=== PATIENT | female | born 1980 | race Caucasian/White ===

== ENCOUNTER 2023-08-20 14:50 | Outpatient (CLI) | payer OTHER, SELFPAY ==
--- NOTE | ~2023-08-20 | MM_ITS ---
EXAMINATION: MM screening caesar BI w andreia HISTORY: Screening TECHNIQUE: Craniocaudal and mediolateral oblique 3-D tomosynthesis images were obtained and synthetic 2-D images were generated. CAD analysis was submitted and interpreted. COMPARISON: No prior mammogram is available for comparison at this institution. BREAST PARENCHYMAL COMPOSITION: Breast composed of scattered areas of fibroglandular density FINDINGS: There are bilateral breast asymmetries in the upper outer quadrants. There are no suspiciou s calcifications. IMPRESSION: 1. Bilateral breast asymmetries. 2. Additional mammographic views and possible breast ultrasound are recommended. BI-RADS Category 0: Incomplete: Needs additional imaging evaluation. Reviewed, dictated and finalized at location A. CLEANER HELPER IMPRESSION: 1. Bilateral breast asymmetries. 2. Additional mammographic views and possible breast ultrasound are recommended . BI-RADS Category 0: Incomplete: Needs additional imaging evaluation.
== END 2023-08-20 14:51 | disposition home or self-care (01) ==
LOC: ANHIMG 14:53
PROVIDERS: PCP Internal Medicine; Visit Provider Nurse Practitioner
DX: Z12.31 Encounter for screening mammogram for malignant neoplasm of breast (principal); R92.8 Other abnormal and inconclusive findings on diagnostic imaging of breast
CPT/HCPCS: 77063; 77067

== ENCOUNTER 2023-10-06 10:33 | Outpatient (CLI) | payer OTHER, MEDICAID, SELFPAY ==
--- NOTE | ~2023-10-06 | MMUS_ITS ---
EXAMINATION: MM diagnostic caesar BI w andreia, US breast BI limited HISTORY: Follow-up breast asymmetries TECHNIQUE: Additional 3-D tomosynthesis images of the breasts were performed and synthetic 2-D images were generated. CAD analysis was submitted and interpreted. High resolution limited bilateral breast ultrasound was performed. COMPARISON: Comparison to multiple prior studies sequentially, with oldest reviewed study dated 10/2020. BREAST PARENCHYMAL COMPOSITION: Breast composed of scattered areas of fibroglandular density FINDINGS: MAMMOGRAPHIC FINDINGS: There are no suspicious masses, calcifications or architectural distortion in either breast to sugges t malignancy. Breast asymmetries are less apparent with spot compression views. ULTRASOUND: Limited bilateral breast ultrasound: Normal heterogeneous echotexture without focal solid or cystic m ass. IMPRESSION: 1. No evidence for malignancy in either breast. 2. Routine yearly screening mammogram and regular clinical breast examination are recommended. BI-RADS Category 1: Negative Reviewed, dictated and finalized at location A. AL RECRUITER IMPRESSION: 1. No evidence for malignancy in either breast. 2. Routine yearly screening mammogram and regular clinical breast examination a re recommended. BI-RADS Category 1: Negative
== END 2023-10-06 10:34 | disposition home or self-care (01) ==
PROVIDERS: PCP Internal Medicine; Visit Provider Nurse Practitioner
DX: R92.2 Inconclusive mammogram (principal)
CPT/HCPCS: 76642; 77062; 77066; G0279

== ENCOUNTER 2024-07-22 01:13 | Day surgery (SDC) | payer OTHER, SELFPAY ==
[2024-07-12 13:11] VITALS: BMI 31.3
[2024-07-22 06:14] VITALS: BP 128/82; PULSE 93; RESP 18; TEMP 36.6; O2SAT 100
[2024-07-22 06:17] LABS: BEDSIDEPREGUCG Negative (Negative)
[2024-07-22] MEDS: LACTATED RINGERS 1,000 ML 150 ML IV CONT (06:19)
--- NOTE | 2024-07-22 06:43 | WPDANESEPPF ---
Anes - Initial Pre Proc Eval Procedure: Operation Date: 07/22/24 07:30 Proposed Procedures p Screening Colonoscopy - Antonio Salcedo MD Date/Time: 07/22/24 06:43 Surgeon: Antonio Salcedo MD Pre Op Diagnosis: neoplasm screening Patient Data Age: 44 Gender: F Height: 1.68 m Weight: 85.5 kg Last Vital Signs Temp 36.6 C 07/22/24 06:14 Pulse 93 07/22/24 06:14 Resp 18 07/22/24 06:14 BP 128/82 07/22/24 06:14 Pulse Ox 100 07/22/24 06:14 O2 Del Method Room Air 07/22/24 06:14 Allergies Allergy/AdvReac Type Severity Reaction Status Date / Time sulfamethoxazole Allergy Unknown Blurry Verified 07/22/24 06:13 Vision trimethoprim Allergy Unknown Blurry Verified 07/22/24 06:13 Vision Home Medications Medication Instructions Recorded Confirmed Type acyclovir 800 mg tablet 800 mg PO DAILY 07/12/24 07/22/24 History atorvastatin 20 mg tablet 20 mg PO DAILY 07/12/24 07/22/24 History levothyroxine 100 mcg tablet 100 mcg PO DAILY 07/12/24 07/22/24 History multivitamin with folic acid 400 1 tablet PO DAILY 07/12/24 07/22/24 History mcg tablet (Daily-Moiz (with folic acid)) norethindrone (contraceptive) 0.35 0.35 mg PO DAILY 07/12/24 07/22/24 History mg tablet (Incassia) Laboratory Tests 07/22/24 06:13 POC Urine HCG, Qual Negative (Negative) Patient hx anesthesia problems: none Family hx anesthesia problems: none Results Review: All pre-operative results and documents have been reviewed as part of the pre-operative evaluation. [facility] Past Medical History Medical History (Updated 07/22/24 @ 06:44 by Alexx Hamilton MD) Hyperlipidemia Hypothyroidism Surgical History Surgical History (Updated 07/22/24 @ 06:46 by Alexx Hamilton MD) H/O colonoscopy History of foot surgery History of tubal ligation Social History Social History Smoking status: Never smoker Substance use type: does not use Living arrangements: with family Spiritual care concerns: No Anes - Eval Final PreProcedure Day of Procedure 07/22/24 06:43 Patient weight: obese Heart: regular rate and rhythm Lungs: clear to auscultation Airway: Mallampati scale class 1 Neurological: alert and oriented Last oral intake: >/= 8 hours ASA classification: II Emergent: no Anesthetic plan: proceed Anesthesia type and monitoring: general GIVS and standard monitoring Results Review: All pre-operative results and documents have been reviewed as part of the pre-operative evaluation. Informed Consent: The patient's anesthetic plan and its attendant risks and benefits were discussed with the patient/family/POA. Questions were solicited and answers provided to the satisfaction of the patient/family/POA.
--- NOTE | 2024-07-22 07:17 | WPDANESEPPF ---
Anes - Initial Pre Proc Eval Procedure: Operation Date: 07/22/24 07:30 Proposed Procedures p Screening Colonoscopy - Antonio Salcedo MD Date/Time: 07/22/24 07:17 Surgeon: Antonio Salcedo MD Pre Op Diagnosis: neoplasm screening Patient Data Age: 44 Gender: F Height: 1.68 m Weight: 85.5 kg Last Vital Signs Temp 36.6 C 07/22/24 06:14 Pulse 93 07/22/24 06:14 Resp 18 07/22/24 06:14 BP 128/82 07/22/24 06:14 Pulse Ox 100 07/22/24 06:14 O2 Del Method Room Air 07/22/24 06:14 Allergies Allergy/AdvReac Type Severity Reaction Status Date / Time sulfamethoxazole Allergy Unknown Blurry Verified 07/22/24 06:13 Vision trimethoprim Allergy Unknown Blurry Verified 07/22/24 06:13 Vision Home Medications Medication Instructions Recorded Confirmed Type acyclovir 800 mg tablet 800 mg PO DAILY 07/12/24 07/22/24 History atorvastatin 20 mg tablet 20 mg PO DAILY 07/12/24 07/22/24 History levothyroxine 100 mcg tablet 100 mcg PO DAILY 07/12/24 07/22/24 History multivitamin with folic acid 400 1 tablet PO DAILY 07/12/24 07/22/24 History mcg tablet (Daily-Moiz (with folic acid)) norethindrone (contraceptive) 0.35 0.35 mg PO DAILY 07/12/24 07/22/24 History mg tablet (Incassia) Laboratory Tests 07/22/24 06:13 POC Urine HCG, Qual Negative (Negative) Patient hx anesthesia problems: none Family hx anesthesia problems: none Results Review: All pre-operative results and documents have been reviewed as part of the pre-operative evaluation. [facility] Past Medical History Medical History (Updated 07/22/24 @ 06:44 by Alexx Hamilton MD) Hyperlipidemia Hypothyroidism Surgical History Surgical History (Updated 07/22/24 @ 06:46 by Alexx Hamilton MD) H/O colonoscopy History of foot surgery History of tubal ligation Social History Social History Smoking status: Never smoker Substance use type: does not use Living arrangements: with family Spiritual care concerns: No Anes - Eval Final PreProcedure Day of Procedure 07/22/24 07:17 Patient weight: normal Heart: regular rate and rhythm Lungs: clear to auscultation Airway: Mallampati scale class II Neurological: alert and oriented Last oral intake: >/= 8 hours ASA classification: II Emergent: no Anesthetic plan: proceed Anesthesia type and monitoring: general GIVS and standard monitoring Results Review: All pre-operative results and documents have been reviewed as part of the pre-operative evaluation. Informed Consent: The patient's anesthetic plan and its attendant risks and benefits were discussed with the patient/family/POA. Questions were solicited and answers provided to the satisfaction of the patient/family/POA.
--- NOTE | 2024-07-22 07:31 | PM.IMHP ---
H&P: HPI History of Present Illness Date/Time: 07/22/24 07:31 Chief Complaint: Family history of colorectal cancer Narrative: This patient has family history of colorectal cancer. her father was diagnosed with colorectal cancer at age 60. She had 1st colonoscopy at age 37. Review of Systems Review of Systems: All systems reviewed & are unremarkable except as noted in HPI and below PMFSH Past Medical History Medical History (Updated 07/22/24 @ 07:32 by Antonio Salcedo MD) Hyperlipidemia Hypothyroidism Surgical History Surgical History (Updated 07/22/24 @ 06:46 by Alexx Hamilton MD) H/O colonoscopy History of foot surgery History of tubal ligation Social History Social History Smoking status: Never smoker Substance use type: does not use Living arrangements: with family Spiritual care concerns: No Meds Home Medications and Allergies Home Medications Medication Instructions Recorded Confirmed Type acyclovir 800 mg tablet 800 mg PO DAILY 07/12/24 07/22/24 History atorvastatin 20 mg tablet 20 mg PO DAILY 07/12/24 07/22/24 History levothyroxine 100 mcg tablet 100 mcg PO DAILY 07/12/24 07/22/24 History multivitamin with folic acid 400 1 tablet PO DAILY 07/12/24 07/22/24 History mcg tablet (Daily-Moiz (with folic acid)) norethindrone (contraceptive) 0.35 0.35 mg PO DAILY 07/12/24 07/22/24 History mg tablet (Incassia) Allergies Allergy/AdvReac Type Severity Reaction Status Date / Time sulfamethoxazole Allergy Unknown Blurry Verified 07/22/24 06:13 Vision trimethoprim Allergy Unknown Blurry Verified 07/22/24 06:13 Vision Vital Signs Vital Signs - 24 hr 07/22/24 06:14 Temperature 97.9 F Pulse Rate 93 Respiratory Rate 18 Blood Pressure 128/82 Pulse Oximetry 100 Oxygen Delivery Room Air Exam Const: General: cooperative and healthy appearing Resp: Effort & Inspection: normal respiratory effort and able to speak in complete sentences Auscultation: clear to auscultation bilaterally Cardio: Rate: regular rate Rhythm: regular rhythm GI: Inspection: normal to inspection GI Palp: No No hepatosplenomegaly present Auscultation: normal bowel sounds Rectal Exam: deferred Skin: General skin exam: normal color Psych: Appearance: grossly normal Mental Status: mental status grossly normal Assessment and Plan Assessment and plan (1) Family history of colon cancer: Code(s): Z80.0 - Family history of malignant neoplasm of digestive organs Status: Acute Assessment and Plan: The patient is deemed a good candidate for the procedure. Consent signed. Will proceed.
[2024-07-22 07:49] VITALS: BP 97/60; PULSE 73; RESP 20; O2SAT 98
[2024-07-22 07:59] VITALS: BP 110/72; PULSE 64; RESP 18; O2SAT 98
[2024-07-22 08:09] VITALS: BP 127/73; PULSE 63; RESP 18; O2SAT 100
== END 2024-07-22 08:25 | disposition home or self-care (01) ==
PROVIDERS: Anesthesiology; PCP Internal Medicine; Referring Provider Internal Medicine; Visit Provider Internal Medicine Gastroenterology
PROC: 0DJD8ZZ Inspection of Lower Intestinal Tract, Via Natural or Artificial Opening Endoscopic (ICD-10-PCS; CPT 45378; principal; 2024-07-22 07:30)
DX: Z12.11 Encounter for screening for malignant neoplasm of colon (principal); Z80.0 Family history of malignant neoplasm of digestive organs; E78.5 Hyperlipidemia, unspecified; E03.9 Hypothyroidism, unspecified; E66.9 Obesity, unspecified; Z68.30 Body mass index [BMI] 30.0-30.9, adult
CPT/HCPCS: 45378; J2003; J2704; J7120

== ENCOUNTER 2025-01-19 14:57 | Outpatient (CLI) | payer OTHER, SELFPAY ==
--- NOTE | ~2025-01-19 | MM_ITS ---
EXAMINATION: MM screening caesar BI w andreia HISTORY: Screening TECHNIQUE: Craniocaudal and mediolateral oblique 3-D tomosynthesis images were obtained and synthetic 2-D images were generated. CAD analysis was submitted and interpreted. COMPARISON: Comparison to multiple prior studies sequentially, with oldest reviewed study dated 10/2020. BREAST PARENCHYMAL COMPOSITION: Not dense: There are scattered areas of fibroglandular density. FINDINGS: There is no evidence of suspicious mass, calcification, or architectural distortion to sugg est malignancy in either breast. There has been no suspicious interval change. IMPRESSION: 1. No mammographic evidence of malignancy. 2. Recommend routine screening mammography in one year. BI-RADS Category 1: Negative Reviewed, dictated and finalized at location A.
--- OUTSIDE RECORDS SUMMARY | 2025-01-19 15:03 | XMS_ITS | Data Portability ---
Author Organization [facility] [place] Address [address] [place] [address] Care Team Providers Care Glue Drier Operator Name Role Phone ZEKE AVENDANO Primary Care Provider Assessment Encounter Date Assessment Date Assessment LastModified by Organization Details LastModified Time 03/05/2022 03/05/2022 Discussed and reassured re normal amenorrhea on Slynd. may stop if she wants periods, may continue if she does not. she wants to continue discussed OTC colace and/or miralax for constipation WWE due 1-2 mos, will refill slynd then. [email or web address] Not available 03/06/2022 07:13:31 04/24/2022 04/24/2022 healthy female exam patient declines std testing pap due 2023 mammogram ordered and encouraged contraception-tu bal and slynd- refilled FU 1 year or prn [email or web address] Not available 04/29/2022 08:51:34 06/04/2023 06/04/2023 Annual gynecological exam performed. Patient will come back in a year unless there are new symptoms. [email or web address] Not available 06/04/2023 16:40:02 08/03/2024 08/03/2024 Annual gynecological exam performed. Patient will come back in a year unless there are new symptoms. [email or web address] Not available 08/03/2024 16:00:41 Plan of Treatment Reminders Order Date Submit Date Provider Last Modified By Organization Details Last Modified Time Details Appointments None recorded. Lab None recorded. Referral None recorded. Procedures None recorded. Surgeries None recorded. Imaging MAMMO, screening, digital, bilateral 2023 024 [email or web address] [facility], [address], [place], [address], 5 18:46:27 MAMMO, screening, digital, bilateral 2022 [facility]23 [facility] [address], [place], [address], 4 15:56:44 Medication Orders doxycycline hyclate 100 mg capsule 2023 024 [facility] [address], [address], 4 16:26:44 Incassia 0.35 mg tablet 2023 024 [facility] [address], [address], 4 16:28:04 Slynd 4 mg (28) tablet 2022 023 [email or web address] [facility] [address], [address], 4 16:02:16 Slynd 4 mg (28) tablet 2021 022 [place] [address] [facility] [address], [address], 4 16:02:16 Patient TargetsNo targets recorded. Patient InstructionsNo instructions recorded. Reason for Referral None Reported. Results Created Date Observation Date Name Description Value Unit Range Abnormal Flag Note LastModifiedBy Organization Detail LastModifiedTime 06/04/20 23 06/04/2023 IMAGE GUIDE D PAP AND HPV REGAR DLESS image guided Pap, HPV regardless of Pap result SEE RESULT S BELOW CASE REPOR T: Cytol ogy Gynec ologi tiesha Repor t Case: [id number] Autho rachael g Provi maninder: LamSierra faust NP Colle cted: 06/04 1653 Order ing Locat ion: [place] [facility] Recei joslyn: 06/05 0724 First Scree n: Shobha ramirez, Endy ed, CT Rescr een: Lindsey lunsfodr, Cullen faust, CT Speci men: Scree shahana Pap - Image d, Cervi x STATE MENT OF ADEQU ACY: Satis facto ry for evalu ation Trans forma tion zone compo nent prese nt FINAL DIAGN OSIS: Negat john for Intra epith elial Lesio n or Paresh brewer (NIL) . Shift in [place] sugge stive of bacte rial vagin osis. Elect martínez mchugh d by Lindsey lunsford, Cullen faust, CT on 2022 at 5:25 PM ----- ----- ----- ----- ----- ----- ----- ----- ----- ----- ----- ----- ----- ----- ----- ----- ----- ---- HPV RESUL TS: HPV mRNA E6/E7 : No HPV mRNA Detec leeanne NOTE: This high risk HPV mRNA assay detec ts fourt een high- risk HPV types (16, 18, 31, 33, 35, 39, 45, 51, 52, 56, 58, 59, 66, 68) witho ut diffe renti ation . COMME NT: This speci men was revie wed by a Cytot echno logis t and/o r Patho logis t (as indic ated in this repor t) after evalu ation using the Thinp rep Imagi ng Syste m. CLINI TIESHA INFOR MATIO N: Menst rual Statu s: LMP (if appli cable ): Clini tiesha Histo ry/Pr eviou s Pap: Type of Neopl ross (if appli cable ): Signi fican t Clini tiesha Findi ngs: Other Histo ry: Hormo koko (if appli cable ): PAP EDUCA AMILCAR L NOTE: The Pap Test is a scree shahana test with an inher ent false negat john rate. Liqui d-bas ed sampl ing may decre ase, but will not elimi lincoln, false negat john resul ts. A negat john resul t does not precl ude the prese nce and/o r devel opmen t of disea se, since the prese nce of abnor mal cells in the sampl e depen ds on the locat ion of the lesio n and sampl ing techn ique. Vinay nued regul ar scree shahana is the best metho d of cance r preve ntion . If repor leeanne cytol ogic findi ng do not corre late with physi tiesha and/o r histo rical findi ngs, furth er inves tigat ion is recom adilene d, as clini soledad franco nted. Not Available [facility] (Lab) [address], [place], [address], 06/09/2023 18:29:53 08/03/20 24 08/03/2024 CULTU RE: AEROB IC/AN AEROB IC result report SEE RESULT S BELOW abnormal Test: Cultu re: Aerob ic/An aerob ic Speci men Sourc e: Other Speci men Type: Micro biolo gy Speci men Speci men Date: 08/03 1659 Resul t Date: 08/06 1118 Resul t Statu s: Final resul t Abnor mal: Yes Resul ting Lab: [facility] [address] [facility] [address] Tel: [phone] CULTU RE ----- ----- ----- --- Moder ate Growt h Staph yloco ccus aureu s (Abno rmal) Light Growt h Kimberlee l skin [place] Cultu re sampl es colle cted from sites that are proxi mal to kimberlee l anaer obic [place] , do not provi de usefu l infor matio n. The anaer obic porti on of this cultu re has been credi leeanne. STAIN ----- ----- ----- --- Few Gram posit john cocci seen SUSCE PTIBI LITY ----- ----- ----- --- Staph yloco ccus aureu s METHO D HILARIO ----- ----- ----- ----- ----- ---- ----- ----- ----- ----- ----- CLIND AMYCI N <=0.2 5 ug/mL Susce ptibl e ERYTH ROMYC IN <=0.2 5 ug/mL Susce ptibl e GENTA MICIN <=4 ug/mL Susce ptibl e OXACI LLIN <=0.2 5 ug/mL Susce ptibl e TETRA CYCLI NE <=4 ug/mL Susce ptibl e TRIME THOPR IM/ESPINOZA LFAME THOXA ZOLE <=0.5 ug/mL Susce ptibl e VANCO MYCIN 1 ug/mL Susce ptibl e Not Available [facility] (Lab) [address], [place], [address], 08/14/2024 12:11:59 08/03/20 24 08/03/2024 IMAGE GUIDE D PAP AND HPV REGAR DLESS image guided Pap, HPV regardless of Pap result SEE RESULT S BELOW CASE REPOR T: Cytol ogy Gynec ologi tiesha Repor t Case: [id number] Autho rachael g Provi maninder: Sierra Mccall, OMAYRA Colle cted: 08/03 1659 Order ing Locat [place]: [place] [facility] [place] Recei joslyn: 08/04 1248 First Scree n: Wil richey, Nayeli , CT Speci men: Scree shahana Pap - Image d, Cervi x STATE MENT OF ADEQU ACY: Satis facto ry for evalu ation Trans forma tion zone compo nent prese nt ----- ----- ----- ----- ----- ----- ----- ----- ----- ----- ----- ----- ----- ----- ----- ----- ----- ---- FINAL DIAGN OSIS: Negat john for Intra epith elial Lesdyan n or Paresh brewer (NIL) . Shift in [place] sugge stive of bacte rial vagin osis. Elect martínez mchugh d by Nayeli Brooks , LAURA on 2023 at 11:07 AM ----- ----- ----- ----- ----- ----- ----- ----- ----- ----- ----- ----- ----- ----- ----- ----- ----- ---- HPV RESUL TS: HPV mRNA E6/E7 : No HPV mRNA Detec leeanne NOTE: This high risk HPV mRNA assay detec ts fourt een high- risk HPV types (16, 18, 31, 33, 35, 39, 45, 51, 52, 56, 58, 59, 66, 68) witho ut diffe renti ation . COMME NT: This speci men was revie wed by a Cytot echno logis t and/o r Patho logis t (as indic ated in this repor t) after evalu ation using the Thinp rep Imagi ng Syste m. CLINI TIESHA INFOR MATIO N: Menst rual Statu s: LMP (if appli cable ): Clini tiesha Histo ry/Pr eviou s Pap: Type of Neopl ross (if appli cable ): Signi fican t Clini tiesha Findi ngs: Other Histo ry: Hormo koko (if appli cable ): PAP EDUCA AMILCAR L NOTE: The Pap Test is a scree shahana test with an inher ent false negat john rate. Liqui d-bas ed sampl ing may decre ase, but will not elimi lincoln, false negat john resul ts. A negat john resul t does not precl ude the prese nce and/o r devel opmen t of disea se, since the prese nce of abnor mal cells in the sampl e depen ds on the locat ion of the lesio n and sampl ing techn ique. Vinay nued regul ar jim harkins is the best metho d of cance r preve ntion . If repor leeanne cytol ogic findi ng do not corre late with physi tiesha and/o r histo rical findi ngs, furth er inves tigat ion is recom adilene d, as clini soledad franco nted. Not Available [facility] (Lab) [address], [place], [address], 08/14/2024 12:11:59 09/10/19 24 08/20/2023 MAMMO , jim alvesg, digit al, bilat eral No observ ation record ed. [address], [place], [address], 09/10/2023 17:34:59 Result Notes None recorded. Problems Name Problem SNOMED Code Status Onset Date Resolution Date Notes Provider Name and Address Organization Details Recorded Time Hypothyroidis m 89102414 Active 2021 Clari You MD [address], [place], [address], [facility] 2 14:14:57 Hypercholeste rolemia 33270690 Active 2021 Clari You MD [address], [place], [address], [facility] 2 14:15:03 Problem Notes None recorded. Procedures Surgical History Date Name Laterality Status Provider Name and Address Organization Details Recorded Time 08/20/20 Date of Last Mammogram completed Sherry Yanez [facility] 08/03/2024 16:02:58 06/04/20 23 Date of Last Pap Smear completed Sherry Yanez [facility] 08/03/2024 16:02:33 04/27/20 18 completed Misti Manrique [facility] 06/04/2023 16:40:33 04/27/20 18 Date of Last [facility] 06/04/2023 16:40:33 09/08/19 15 Tubal Ligation completed [facility] 03/05/2022 14:10:53 04/01/20 05 delivery completed [facility] 03/05/2022 09:38:22 [facility]2023 16:40:42 Colonoscopy completed [facility] 06/04/2023 16:40:42 Imaging Results Imaging Date Name Status LastModified by Organiz ation Details LastModified Time 08/20/2023 MAMMO, screening, digital, bilateral completed [address] [facility] [address], [place], [address], 09/10/2023 17:34:59 Procedure Notes None recorded. Medical Equipment None Reported. Allergies Allergen ID Allergen Name Allergen Category Reaction Reaction Severity Criticality Documentation Date Start Date Code Code System Note Provider Name and Address Organization Details Recorded Time 34421 Bactrim medicatio n Not available Not available Not available 03/05/2022 34579 9 [facility] 14:04:55 Medications Name Sig Start Date Stop Date Status Note LastModified by Organization Details LastModified Time doxycycline hyclate 100 mg capsule TAKE 1 CAPSULE BY MOUTH TWICE A DAY FOR 7 DAYS active Not Available Not Available No t Available atorvastati n 20 mg tablet TAKE 1 TABLET BY MOUTH EVERY DAY active Not Available Not Available No t Available tizanidine 4 mg tablet TAKE 1 TABLET BY MOUTH THREE TIMES A DAY NEEDED 03/05 completed Not Available Not Available Not Available senna 8.6 mg tablet TAKE 2 TABLETS BY MOUTH EVERY DAY AT BEDTIME NEEDED FOR CONSTIPAT ION 05/26 completed Not Available Not Available Not Available metronidazo le 0.75 % (37.5 mg/5 gram) vaginal gel INSERT 1 APPLICATO RFUL EVERY DAY BY VAGINAL ROUTE AT BEDTIME FOR 5 DAYS. 03/05 completed Not Available Not Available Not Available penicillin V potassium 500 mg tablet TAKE 1 TABLET EVERY 8 HOURS BY MOUTH FOR 7 DAYS. 03/05 completed Not Available Not Available Not Available tramadol 50 mg tablet TAKE 1 TABLET BY MOUTH EVERY DAY NEEDED FOR 10 DAYS 03/05 completed Not Available Not Available Not Available acyclovir 800 mg tablet TAKE 1 TABLET BY MOUTH EVERY DAY active Not Available Not Available No t Available levothyroxi ne 100 mcg tablet TAKE 1 TABLET BY MOUTH EVERY DAY active Not Available Not Available No t Available terbinafine HCl 250 mg tablet TAKE 1 TABLET BY MOUTH EVERY DAY 03/05 completed Not Available Not Available Not Available polyethylen e glycol 3350 17 gram/dose oral powder MIX 1 CAPFUL IN 8OZ OF FLUID AND TAKE BY MOUTH ONCE DAILY 05/26 completed Not Available Not Available Not Available Tab-A-Moiz 06/04 completed Not Available Not Available Not Available calcium 600 mg (as carbonate)- vitamin D3 10 mcg (400 unit) tablet TAKE 1 TABLET BY MOUTH TWICE A DAY active Not Available Not Available No t Available calcium 600 mg-D3 800 unit-mag11 50 mg-zinc-copper plate lithographer per-janae-s. borat tablet 06/04 completed Not Available Not Available Not Available Incassia 0.35 mg tablet TAKE 1 TABLET BY MOUTH EVERY DAY active Not Available Not Available No t Available Slynd 4 mg (28) tablet TAKE 1 TABLET BY MOUTH EVERY DAY 08/03 completed Not Available Not Available Not Available Daily-Moiz (with folic acid) 400 mcg tablet TAKE 1 TABLET BY MOUTH EVERY DAY active Not Available Not Available No t Available Vitals Date Recorded Body height Body mass index (BMI) Body weight Systolic blood pressure Diastolic blood pressure Provider Name and Address Organization Details Last Updated DateTime 03/05/2022 167.64 cm 27.3 kg/m2 39010.11 g 128 mm[Hg] 84 mm[Hg] [facility] 14:10:46 Date Recorded Body height Body mass index (BMI) Body weight Systolic blood pressure Diastolic blood pressure Provider Name and Address Organization Details Last Updated DateTime 04/24/2022 167.64 cm 27.8 kg/m2 80736.89 g 125 mm[Hg] 82 mm[Hg] Meghana Denson [facility] 2 10:48:12 Date Recorded Body height Body mass index (BMI) Body weight Systolic blood pressure Diastolic blood pressure Provider Name and Address Organization Details Last Updated DateTime 06/04/2023 167.64 cm 29.7 kg/m2 29269 g 121 mm[Hg] 79 mm[Hg] Misti Manrique [facility] 3 16:40:20 Date Recorded Body height Body mass index (BMI) Body weight Systolic blood pressure Diastolic blood pressure Systolic blood pressure Diastolic blood pressure Provider Name and Address Organization Details Last Updated DateTime 4 167.64 cm 30.8 kg/m2 65896.1 4 g 142 mm[Hg] 85 mm[Hg] 132 mm[Hg] 90 mm[Hg] Sherry Yanez [facility] 4 16:36:18 Social History Question Answer Notes LastModified by Organizat ion Details LastModified Time Tobacco Smoking Status Never Smoker Misti Manrique [facility] 06/04/2023 16:40:37 Do You Have An Advance Directive? No Information n ot available 06/04/2023 Are You Blind Or Do You Have Difficulty Seeing? No Information n ot available 06/04/2023 What Is Your Level Of Caffeine Consumption? Occasional Information not available 06/04/2023 How Much Tobacco Do You Chew? None Information not available 06/04/2023 In The 14 Days Before Symptom Onset, Have You Had Close Contact With A Laboratory-confirm ed COVID-19 While That Case Was Ill? No Information n ot available 06/04/2023 In The 14 Days Before Symptom Onset, Have You Had Close Contact With A Person Who Is Under Investigation For COVID-19 While That Person Was Ill? No Information not available 06/04/2023 Have You Been To An Area Known To Be High Risk For COVID-19? No Information not available 06/04/2023 Are You Deaf Or Do You Have Serious Difficulty Hearing? No Information not available 06/04/2023 What Type Of Diet Are You Following? REGULAR Information n ot available 06/04/2023 What Is The Highest Grade Or Level Of School You Have Completed Or The Highest Degree You Have Received? [id number] Information not available 06/04/2023 Are There Any Guns Present In Your Home? No Information not available 06/04/2023 Do You Use Your Seat Belt Or Car Seat Routinely? Yes Information not available 06/04/2023 Do You Have Smoke And Carbon Monoxide Detectors In Your Home? Yes Information not available 06/04/2023 How Much Tobacco Do You Smoke? No Information not available 06/04/2023 Do You Use Sunscreen Routinely? Yes Information not available 06/04/2023 Has Tobacco Cessation Counseling Been Provided? No Information not available 06/04/2023 Have You Used IV Drugs? No Information not available 06/04/2023 Sex: Unknown Functional Status Question Answer Note LastModified by Organizat ion Details LastModified Time Do you use any illicit or recreational drugs? No Information not available 03/05/2022 Do you or have you ever used any other forms of tobacco or nicotine? No Information not available 06/04/2023 What is your level of alcohol consumption? None Information not available 03/05/2022 Are you able to walk? 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 [id number] Information not available 06/04/2023 Family History Relationship Description Onset Age of this Age Resolved Age Notes LastModified by Organization Details LastModified Time Mother Chronic obstructive pulmonary disease [email or web address] Not available 2023 15:57:15 Mother Alcoholism [email or web address] Not availa ble 08/03/2024 15:57:15 Mother Heart disease [email or web address] Not available 2021 14:05:48 Mother Hypercholest erolemia [email or web address] Not available 05/10 16:40:25 Mother Hypertensive disorder [email or web address] Not available 05/10 16:40:25 Mother Depressive disorder [email or web address] Not available 05/10 16:40:25 Father Carcinoma in situ of colon [email or web address] Not available 2023 15:57:15 Father Carcinoma of prostate [email or web address] Not available 2023 15:57:15 Father Malignant tumor of colon [email or web address] Not available 05/10 16:40:25 Son Asthma [email or web address] Not availabl e 06/04/2023 16:40:25 Medical History Condition Response Allergies (Food, seasonal, environmental ) N Other N Breast Cancer N Drug/Latex Allergies/Reactions N Blood Transfusion N Dermatologic Disorders N Lung Disease N Defects or Inherited Disease N Breast Problem N Gestational Diabetes N Hematologic disorders N Anesthesia Complications N History of STI N Deep Vein Thrombosis N Polycystic ovary syndrome N Anxiety Disorder N Autoimmune disease N Arthritis N Infertility N Polyps N Acid Reflux (GERD) N History of abnormal pap N Cancer N Stroke N Varicosities N Neurologic/Epilepsy N Endometriosis N High Cholesterol Y Headaches N Fibromyalgia N Kidney Disease N Heart Problems N Kidney or Bladder Problems N Thyroid Problems Y GI Problems N Eating Disorder N Anemia N Art (IVF or FET) N Psychiatric Illness N Ovarian Cancer N Diabetes N Pulmonary (TB, Asthma) N Hepatitis/Liver Disease N No Past Medical History N Eczema N Urinary Tract Infection N Abuse/Domestic Violence N Asthma N Trauma/Violence N Depression/ depression N Heart Disease N Pre-Eclampsia N Hypertension N Osteoporosis N Thrombophilias N Gynecological History Statement/Question Response Date of Last Mammogram 08/20/2023 Flow Moderate Date of LMP 07/13/2024 N Was last menstrual period normal Y STIs/STDs Y Date of control 03/17/2021 Date of Last Colonoscopy 04/27/2018 BCPs Desired Control Method BCPs Abnormal Pap Y On BCP's at Conception? N HPV Vaccine Y Duration of Flow (days) 6 Current Control Method Tubal Ligat ion Age at First Child 19 Are cycles usually normal Y Frequency of Cycle (Q days) 28 Sexually Active? N Menses Monthly Y Age of first menstrual cycle 16 Date of Last Pap Smear 06/04/2023 Sexual Problems? N LMP Approximate 04/27/2018 Obstetrics History GPAL:G 3 P 2 0 1 2 Type Value Full Term 2 Induced 1 Living 2 Total 3 Past Encounters Encounter ID Performer Location Encounter Start Date Encounter Closed Date Diagnosis/Indication Diagnosis SNOMED-CT Code Diagnosis ICD10 Code Diagnosis Note [id number] Clari You MD [facility] [address],[facility] [place] [address] 03/05/2022 13:31:02 03/06/2022 15:32:20 Secondary amenorrhea 590311690 N91.1 Constipation 49052495 K5 9.00 [id number] Clari You MD [place] [address],[place] [address] 04/24/2022 10:42:06 04/25/2022 12:18:10 Menorrhagia 647433379 N92.0 Gynecologi c examination 46504157 Z01.419 [id number] MONICA Fabian [facility] [address],[facility] [place] [address] 06/04/2023 16:35:27 06/04/2023 17:16:54 Gynecologic examination 78182276 Z01.419 Suggested adequate Calcium with Vitamin D daily. Patient advised to get an annual flu shot in the fall and she could obtain at [facility] or [facility] clinic. Also to obtain TDap vaccinatio n if you have not had one in the last 10 years. Recommend yearly mammograms . Encouraged monthly self breast exams. Encourage safe sexual practices, to use condoms and limit partners if not already in a monogamous relationsh ip. Engage in daily exercise of low impact aerobic exercise 45-60 minutes 4-5 times weekly. Avoid tobacco and illicit drugs as well as using moderation with alcohol intake less than 1-2 8 oz beverages daily. This lifestyle behavior pattern will lead to less health conditions and longer life span. If BMI greater than 25 dietary consult advised. All questions have been answered. Patient appears to understand informatio n, but if you have any questions please call or respond to this email. [facility] [place] to help with periodshap py with slynd and would like to continuer/ b/a reviewedre fills sentpap updatedSTI testing declinedma mmogram order given and encouraged to schedulefa m hx of colon CA - colonoscop y UTD (PCP orders)UTD with PCP for routine labsRTC in 1 year or sooner if needed Screening for malignant neoplasm of breast 604444200 Z12.39 Contracept ion care management 738511363 Z30.9 Menorrhagia 131430956 N9 2.0 [id number] MONICA Fabian [place] [address] [address] 08/03/2024 15:56:57 08/04/2024 11:09:37 Gynecologic examination 99165842 Z01.419 Z11.51 [facility] [place], refills sent, r/b/a reviewedPa p - updatedSTI screen - declinedMa mmogram - orderedCol on cancer screening - n/aRoutine labs - PCPRTC in 1 yr or sooner if needed Suggested Calcium with Vitamin D daily. Patient advised to get an annual flu shot in the fall and she could obtain at local pharmacy. Also to obtain TDap vaccinatio n if you have not had one in the last 10 years. Recommend yearly mammograms . Encouraged monthly self breast exams. Encourage safe sexual practices, to use condoms and limit partners if not already in a monogamous relationsh ip. Engage in regular exercise. Avoid tobacco and illicit drugs. This lifestyle behavior pattern will lead to less health conditions and longer life span. If BMI greater than 25 dietary consult advised. All questions have been answered. Abscess of vulva 5450529 1 N76.4 cx obtainedrx sent for doxycyclin eprecautio ns discussed Screening for malignant neoplasm of breast 229395648 Z12.39 Menorrhagia 039580022 N9 2.0 refills sent Health Concerns Section Related Observation LastModified by Organization Detai ls LastModified Time None Recorded Concern Status LastModified by Organization Details LastModified Time None Recorded Advance Directives Directive N: Payers Encounter Date Sequence Insurance Name Policy Number Policy Benitez Covered Member ID Benitez Member ID Guarantor Name 03/05/2022 1 [facility] (MEDICAID HMO) [id number] 03 Asuncion Ashley [id number] Asuncion Ashley 04/24/2022 1 [facility] (MEDICAID HMO) [id number] 03 Asuncion Ashley [id number] Asuncion Ashley 06/04/2023 1 [facility] (MEDICAID HMO) [id number] 03 Asuncion Ashley [id number] Asuncion Ashley 08/03/2024 1 [id number] Asuncion Ashley [id number] Asuncion Ashley Notes Date Note Type Note Provider Name and Address Organization Details Recorded Time 03/05/2022 text/html Patient is a 42y o who presents for not having periods. She is sexually active and has a tubal. She had an IUD for bleeding, but then had it removed and has been on Slynd now for over a year. She is not having any cycles while on it and is worried. Concerns: last WWE:03/2021 Eufemia Depression:denies Domestic violence:denies She also complains of constipation, BMs only once or twice per week. Clari You MD [address], [place], [address], [facility] 03/06/2022 07:14:00 04/24/2022 text/html Patient is a 42y o who presents for an annual exam. Tubes tied but on slynd for menorrhagia. doing well. last pap-02/2021 mammogram-2020 sexually active-y seatbelts-y exercise-y depression-denies domestic violence-denies tobacco-n concerns- Clari You MD [address], [place], [address], [facility] 04/29/2022 08:51:57 06/04/2023 text/html Annual GYNReport ed bypatient.Menstrua l cycle:Normal menses Urinary symptoms:No hematuria; No incontinence Vulva:No genital lesion Vagina:Normal vaginal discharge Breast:No breast pain; No breast lump; No nipple discharge Current Contraception:Sati sfied with current contraception; Oral contraceptives; Tubal ligation; on POP to with periods Sexual complaints:No sexual complaints; No pain during intercourse; Normal libido Menopausal Symptoms:No menopausal symptoms; Normal vaginal lubrication Psychological symptoms:No depression; No anxiety; No PMDD Preventive measures:Encourage self breast examination; Encourage regular exercise; Encourage no tobacco use; Encourage regular mammograms starting age 40; Needs to schedule mammogram MONICA Fabian [address], [place], [address], [facility] 06/04/2023 17:12:59 08/03/2024 text/html Annual GYNReport ed bypatient.Menstrua l cycle:Normal menses Urinary symptoms:No hematuria; No incontinence Vulva:No genital lesion; furuncle on mons, recently drained on its own - tender Vagina:Normal vaginal discharge Breast:No breast pain; No breast lump; No nipple discharge Current Contraception:Sati sfied with current contraception; Tubal ligation Sexual complaints:No sexual complaints; No pain during intercourse; Normal libido Menopausal Symptoms:No menopausal symptoms; Normal vaginal lubrication Psychological symptoms:No depression; No anxiety; No PMDD Preventive measures:Encourage self breast examination; Encourage regular exercise; Encourage no tobacco use; Encourage regular mammograms starting age 41Notes:44yo wweBC - POPlast pap 05/2023 : nilm, HPV (-)h/o abnormal pap in 2014 MONICA Fabian [address], [place], [address], [facility] 08/04/2024 09:17:21 OBGyn Episode Ob Episode Information Episode Created Date Number of Fetuses Patient Bloodtype Patient rh Status Prepregnancy Weight lbs Domestic Partner Domestic Partner Phone Father Name Transmission Repairer Status 03/05/20 22 1 CLOSED Fetus Data First Name Last Name Admitted to NICU Weight (g) Sex Living Outcome Pediatric Complications Fetus ID Race Codes Race Delivery Type , Induced [id number] Marlon Calculation Initial Marlon Date Initial Exam Date Initial Exam Provider Initial Ultrasound Date Last Menstrual Period Date Ultra Sound Weeks Gestation 0 Eighteen To Twenty Week Marlon Update Ultra Sound Date Fundal Height At Umbil Quickening Date Ultra Sound Latest Weeks Gestation Final Marlon Confirmed By Final Marlon Confirmed Date Final Marlon Date Ultra Sound Latest Days Gestation 0 0 Menstrual History [id number]|2025-01-19 15:03:00|2025-01-19 15:03:00|XMS_ITS|KEYANNA CASTELLON|External Medical Summaries|[id number]|" Data Portability Created on: January 19, 2025 Asuncion Ashley .[id number] : 1980 Sex: Female Author Organization [facility] ANNYDamien Address [address] [place] [address] Assessment No assessment recorded. Plan of Treatment Reminders Order Date Submit Date Provider Last Modified By Organization Details Last Modified Time Details Appointments None recorded. Lab pap, IG + HPV, cervical - please use Z11.51 in addition to code above for HPV testing. 2020 021 WENDY [facility], [address], [address] [address], [place], [address], 03:08:19 bacterial vaginosis panel, vaginal 2020 021 WENDY [facility] (Centralized Electronic Ordering - All Locations), Patient Can Go To The Location Of Their Choice, [address] 09:13:01 culture, vaginal/r ectal, streptoco ccus group B 2020 021 WENDY [facility] (Centralized Electronic Ordering - All Locations), Patient Can Go To The Location Of Their Choice, [address] 09:13:02 urinalysi s, dipstick 2019 020 [email or web address] In-Office Order, Internal Use Only DO Not Attach Compendium DO Not Attach Compendium, Do Not Delete/merge, [id number] 0 17:21:15 pap, IG + HPV, cervical - please use Z11.51 in addition to code above for HPV testing. 2019 020 WENDY [facility], [address], [address] [address], [place], [address], 0 20:08:02 bacterial vaginosis panel, vaginal 2019 020 WENDY [facility] (Centralized Electronic Ordering - All Locations), Patient Can Go To The Location Of Their Choice, [id number] 0 06:13:46 culture, vaginal/r ectal, streptoco ccus group B 2019 020 WENDY [facility] (Centralized Electronic Ordering - All Locations), Patient Can Go To The Location Of Their Choice, [address] 0 06:13:46 lipid panel, serum 2019 020 [email or web address] [facility], [address] [place] [address], [address], [place], [address], 0 10:11:21 TSH + free T4, serum 2019 020 WENDY [facility], [address] [place] [address], [address], [place], [address], 0 09:11:31 rapid strep group A, throat 2018 019 [email or web address] In-Office Order, Internal Use Only DO Not Attach Compendium DO Not Attach Compendium, Do Not Delete/merge, [id number] 9 09:56:41 lipid panel, serum 2018 019 [email or web address] [facility], [address] [place] [address], [address], [place], [address], 9 10:01:38 CBC w/ auto diff 2018 019 [email or web address] [facility], [address] [place] [address], [address], [place], [address], 9 10:01:38 TSH, ultra-sen sitive, serum 2018 019 koko [facility], [address] [facility], [address], [place], [address], 0 16:40:53 Referral podiatris t referral 2019 020 koko Not available 0 16:34:29 Procedures None recorded. Surgeries None recorded. Imaging US, pelvis, complete [address] [facility] ([facility]), [address] [place], [address], 1 14:04:39 MAMMO, screening , bilateral [address] [facility] ([facility]), [address] [place], [address], 1 16:32:46 Medication Orders multivita min tablet 2020 021 [facility] [address], [address], 1 17:15:48 Calcium with Vitamin D 600 mg-10 mcg (400 unit) tablet 2020 021 [facility] [address], [address], 1 17:15:48 Slynd 4 mg (28) tablet 2020 021 [facility] [address], [address], 1 17:15:27 acyclovir 800 mg tablet 2019 020 [facility] [place], [address] [place] [address], [address], 0 16:19:11 Denavir 1 % topical cream 2019 020 [email or web address] [address], [address], 1 16:34:08 terbinafi ne HCl 250 mg tablet 2019 020 [facility] [address], [address], 0 16:34:20 Slynd 4 mg (28) tablet 2019 020 [facility] [address], [address], 0 16:19:12 multivita min tablet 2019 020 [facility] [address], [address], 0 16:19:12 Calcium with Vitamin D 600 mg-10 mcg (400 unit) tablet 2019 020 [facility] [address], [address], 0 16:19:11 atorvasta tin 20 mg tablet 2019 020 [facility] [address], [address], 0 15:57:47 multivita min tablet 2019 020 [facility] [address], [address], 0 15:56:41 Calcium with Vitamin D 600 mg-10 mcg (400 unit) tablet 2019 020 [facility] [address], [address], 0 15:56:42 acyclovir 800 mg tablet 2019 020 [facility] [address], [address], 0 15:56:39 norethind daniel acetate 5 mg tablet 2019 020 [facility] [address], [address], 0 16:15:10 levothyro xine 100 mcg tablet 2019 [facility] [address], [address], 0 15:56:39 Patient TargetsNo targets recorded. Patient Instructions Encounter Date Encounter Id Patient Instructions Last Modified By Organization Details Last Modified Time 11/13/2018 [id number] sore throat: care instructions oajao Not available 11/13/2018 09:56:41 Low CHO, low saturated fat diet Labs Follow up in 2 months oajao Not available 11/13/2018 10:07:52 Her lab results were discussed in detail oajao Not available 11/13/2018 10:08:06 02/21/2020 [id number] heavy menstrual periods: care instructions mwasserman Not available 02/21/2020 15:56:36 hypothyroidism: care instructions mwasserman Not available 02/21/2020 15:56:36 03/05/2021 [id number] mammogram: about this test mwasserman Not available 03/05/2021 17:15:48 mammogram screening patient instructions mwasserman Not available 03/05/2021 17:15:48 Reason for Referral Hand Picker Referral for Onyc homycosis of toenails Referring Physician: Marco Fall, SHUTDOWN COORDINATOR, Encounter Date: 03/30/2020 Results Created Date Observation Date Name Description Value Unit Range Abnormal Flag Note LastModifiedBy Organization Detail LastModifiedTime 10/16/19 19 10/17/2018 CBC w/ auto diff WBC 10.3 x10e3 /uL 3.4-10 .8 Not Available [facility] ([facility]) [address] [place] [place], [address], 10/18/2018 08:09:30 10/16/1910/17/2018 CBC w/ auto diff RBC 4.75 x10e6 /uL 3.77-5 .28 Not Available [facility] ([facility]) [address] [place], [address], 10/18/2018 08:09:30 10/16/1910/17/2018 CBC w/ auto diff hemoglobin 16.5 g/dL 11.1-1 5.9 above high normal Not Available [facility] ([facility]) [address] [place], [address], 10/18/2018 08:09:30 10/16/19 19 10/17/2018 CBC w/ auto diff hematocrit 48.2 % 34.0-4 6.6 above high normal Not Available [facility] ([facility]) [address] [place], [address], 10/18/2018 08:09:30 10/16/19 19 10/17/2018 CBC w/ auto diff MCV 102 fL 79-97 above high normal Not Available [facility] ([facility]) [address] [place], [address], 10/18/2018 08:09:30 10/16/1910/17/2018 CBC w/ auto diff MCH 34.7 pg 26.6-3 3.0 above high normal Not Available [facility] ([facility]) [address] [place], [address], 10/18/2018 08:09:30 10/16/1910/17/2018 CBC w/ auto diff MCHC 34.2 g/dL 31.5-3 5.7 Not Available [facility] ([facility]) [address] [facility], [place], [address], 10/18/2018 08:09:30 10/16/19 19 10/17/2018 CBC w/ auto diff RDW 12.4 % 12.3-1 5.4 Not Available [facility] ([facility]) [address] [facility], [place], [address], 10/18/2018 08:09:30 10/16/19 19 10/17/2018 CBC w/ auto diff platelets 281 x10e3 /uL 150-37 9 Not Available [facility] ([facility]) [address] [facility], [place], [address], 10/18/2018 08:09:30 10/16/19 19 10/17/2018 CBC w/ auto diff neutrophils 74 % not estab. Not Available [facility] ([facility]) [address] [facility], [place], [address], 10/18/2018 08:09:30 10/16/1910/17/2018 CBC w/ auto diff lymphs 19 % not estab. Not Available [facility] ([facility]) [address] [facility], [place], [address], 10/18/2018 08:09:30 10/16/1910/17/2018 CBC w/ auto diff monocytes 6 % not estab. Not Available [facility] ([facility]) [address] [facility], [place], [address], 10/18/2018 08:09:30 10/16/1910/17/2018 CBC w/ auto diff eos 1 % not estab. Not Available [facility] ([facility]) [address] [facility], [place], [address], 10/18/2018 08:09:30 10/16/19 19 10/17/2018 CBC w/ auto diff basos 0 % not estab. Not Available [facility] ([facility]) [address] [facility], [place], [address], 10/18/2018 08:09:30 10/16/1910/17/2018 CBC w/ auto diff immature cells HYDROCHLORIC ACID OPERATOR Not Available [facility] ([facility]) [address] [facility], [place], [address], 10/18/2018 08:09:30 10/16/1910/17/2018 CBC w/ auto diff neutrophils (absolute) 7.7 x10e3 /uL 1.4-7. 0 above high normal Not Available [facility] ([facility]) [address] [facility], [place], [address], 10/18/2018 08:09:30 10/16/1910/17/2018 CBC w/ auto diff lymphs (absolute) 1.9 x10e3 /uL 0.7-3. 1 Not Available [facility] ([facility]) [address] [facility], [place], [address], 10/18/2018 08:09:30 10/16/1910/17/2018 CBC w/ auto diff monocytes(ab solute) 0.6 x10e3 /uL 0.1-0. 9 Not Available [facility] ([facility]) [address] [facility], [place], [address], 10/18/2018 08:09:30 10/16/1910/17/2018 CBC w/ auto diff eos (absolute) 0.1 x10e3 /uL 0.0-0. 4 Not Available [facility] ([facility]) [address] [facility], [place], [address], 10/18/2018 08:09:30 10/16/1910/17/2018 CBC w/ auto diff baso (absolute) 0.0 x10e3 /uL 0.0-0. 2 Not Available [facility] ([facility]) [address] [facility], [place], [address], 10/18/2018 08:09:30 10/16/1910/17/2018 CBC w/ auto diff immature granulocytes 0 % not estab. Not Available [facility] ([facility]) [address] [place], [address], 10/18/2018 08:09:30 10/16/1910/17/2018 CBC w/ auto diff immature grans (abs) 0.0 x10e3 /uL 0.0-0. 1 Not Available [facility] ([facility]) [address] [facility], [place], [address], 10/18/2018 08:09:30 10/16/1910/17/2018 CBC w/ auto diff NRBC HYDROCHLORIC ACID OPERATOR Not Available [facility] ([facility]) [address] [facility], [place], [address], 10/18/2018 08:09:30 10/16/1910/17/2018 CBC w/ auto diff hematology comments: HYDROCHLORIC ACID OPERATOR Not Available [facility] ([facility]) [address] [facility], [place], [address], 10/18/2018 08:09:30 10/16/1910/17/2018 CMP, serum or plasm a glucose 99 mg/dL 65-99 Not Available [facility] ([facility]) [address] [place], [address], 10/18/2018 08:09:30 10/16/1910/17/2018 CMP, serum or plasm a BUN 11 mg/dL 6-20 Not Available [facility] ([facility]) [address] [place], [address], 10/18/2018 08:09:30 10/16/1910/17/2018 CMP, serum or plasm a creatinine 0.89 mg/dL 0.57-1 .00 Not Available [facility] ([facility]) [address] [place], [address], 10/18/2018 08:09:30 10/16/19 10/17/2018 CMP, serum or plasm a eGFR if nonafricn AM 83 mL/mi n/1.7 3 >59 Not Available [facility] ([facility]) [address] [place], [address], 10/18/2018 08:09:30 10/16/19 19 10/17/2018 CMP, serum or plasm a eGFR if africn AM 96 mL/mi n/1.7 3 >59 Not Available [facility] ([facility]) [address] [place], [address], 10/18/2018 08:09:30 10/16/19 19 10/17/2018 CMP, serum or plasm a BUN/creatini ne ratio 12 9-23 Not Available [facility] ([facility]) [address] [place], [address], 10/18/2018 08:09:30 10/16/1910/17/2018 CMP, serum or plasm a sodium 138 mmol/ L 134-14 4 Not Available [facility] ([facility]) [address] [place], [address], 10/18/2018 08:09:30 10/16/1910/17/2018 CMP, serum or plasm a potassium 4.6 mmol/ L 3.5-5. 2 Not Available [facility] ([facility]) [address] [place], [address], 10/18/2018 08:09:30 10/16/1910/17/2018 CMP, serum or plasm a chloride 102 mmol/ L 96-106 Not Available [facility] ([facility]) [address] [place], [address], 10/18/2018 08:09:30 10/16/1910/17/2018 CMP, serum or plasm a carbon dioxide, total 23 mmol/ L 20-29 Not Available [facility] ([facility]) [address] [place], [address], 10/18/2018 08:09:30 10/16/1910/17/2018 CMP, serum or plasm a calcium 9.9 mg/dL 8.7-10 .2 Not Available [facility] ([facility]) [address] [place], [address], 10/18/2018 08:09:30 10/16/1910/17/2018 CMP, serum or plasm a protein, total 7.9 g/dL 6.0-8. 5 Not Available [facility] ([facility]) [address] [place], [address], 10/18/2018 08:09:30 10/16/1910/17/2018 CMP, serum or plasm a albumin 4.8 g/dL 3.5-5. 5 Not Available [facility] ([facility]) [address] [place], [address], 10/18/2018 08:09:30 10/16/1910/17/2018 CMP, serum or plasm a globulin, total 3.1 g/dL 1.5-4. 5 Not Available [facility] ([facility]) [address] [place], [address], 10/18/2018 08:09:30 10/16/1910/17/2018 CMP, serum or plasm a A/G ratio 1.5 1.2-2. 2 Not Available [facility] ([facility]) [address] [place], [address], 10/18/2018 08:09:30 10/16/1910/17/2018 CMP, serum or plasm a bilirubin, total 0.3 mg/dL 0.0-1. 2 Not Available [facility] ([facility]) [address] [place], [address], 10/18/2018 08:09:30 10/16/1910/17/2018 CMP, serum or plasm a alkaline phosphatase 68 IU/L 39-117 Not Available [facility] ([facility]) [address] [place], [address], 10/18/2018 08:09:30 10/16/1910/17/2018 CMP, serum or plasm a AST (SGOT) 18 IU/L 0-40 Not Available [facility] ([facility]) [address] [facility], [place], [address], 10/18/2018 08:09:30 10/16/1910/17/2018 CMP, serum or plasm a ALT (SGPT) 18 IU/L 0-32 Not Available [facility] ([facility]) [address] [facility], [place], [address], 10/18/2018 08:09:30 10/16/1910/17/2018 urina lysis , compl ete specific gravity 1.019 1.005- 1.030 Not Available [facility] ([facility]) [address] [facility], [place], [address], 10/18/2018 08:09:31 10/16/1910/17/2018 urina lysis , compl ete pH 7.0 5.0-7. 5 Not Available [facility] ([facility]) [address] [facility], [place], [address], 10/18/2018 08:09:31 10/16/1910/17/2018 urina lysis , compl ete urine-color YELLOW yellow Not Available [facility] ([facility]) [address] [facility], [place], [address], 10/18/2018 08:09:31 10/16/1910/17/2018 urina lysis , compl ete appearance CLEAR clear Not Available [facility] ([facility]) [address] [place], [address], 10/18/2018 08:09:31 10/16/1910/17/2018 urina lysis , compl ete WBC esterase NEGATI VE negati ve Not Available [facility] ([facility]) [address] [place], [address], 10/18/2018 08:09:31 10/16/1910/17/2018 urina lysis , compl ete protein NEGATI VE negati ve/tra ce Not Available [facility] ([facility]) [address] [place], [address], 10/18/2018 08:09:31 10/16/1910/17/2018 urina lysis , compl ete glucose NEGATI VE negati ve Not Available [facility] ([facility]) [address] [place], [address], 10/18/2018 08:09:31 10/16/1910/17/2018 urina lysis , compl ete ketones NEGATI VE negati ve Not Available [facility] ([facility]) [address] [place], [address], 10/18/2018 08:09:31 10/16/1910/17/2018 urina lysis , compl ete occult blood TRACE negati ve abnormal Not Available [facility] ([facility]) [address] [place], [address], 10/18/2018 08:09:31 10/16/1910/17/2018 urina lysis , compl ete bilirubin NEGATI VE negati ve Not Available [facility] ([facility]) [address] [place], [address], 10/18/2018 08:09:31 10/16/1910/17/2018 urina lysis , compl ete urobilinogen ,semi-qn 1.0 mg/dL 0.2-1. 0 Not Available [facility] ([facility]) [address] [place], [address], 10/18/2018 08:09:31 10/16/1910/17/2018 urina lysis , compl ete nitrite, urine NEGATI VE negati ve Not Available [facility] ([facility]) [address] [place], [address], 10/18/2018 08:09:31 10/16/1910/17/2018 urina lysis , compl ete microscopic examination SEE BELOW: Micro scopi c was indic ated and was perfo rmed. Not Available [facility] ([facility]) [address] [facility], [place], [address], 10/18/2018 08:09:31 10/16/1910/17/2018 urina lysis , compl ete WBC 0-5 /hpf 0 - 5 Not Available [facility] ([facility]) [address] [facility], [place], [address], 10/18/2018 08:09:31 10/16/1910/17/2018 urina lysis , compl ete RBC 0-2 /hpf 0 - 2 Not Available [facility] ([facility]) [address] [facility], [place], [address], 10/18/2018 08:09:31 10/16/1910/17/2018 urina lysis , compl ete epithelial cells (non renal) 0-10 /hpf 0 - 10 Not Available [facility] ([facility]) [address] [place], [address], 10/18/2018 08:09:31 10/16/1910/17/2018 urina lysis , compl ete epithelial cells (renal) HYDROCHLORIC ACID OPERATOR Not Available [facility] ([facility]) [address] [place], [address], 10/18/2018 08:09:31 10/16/1910/17/2018 urina lysis , compl ete casts HYDROCHLORIC ACID OPERATOR Not Available [facility] ([facility]) [address] [place], [address], 10/18/2018 08:09:31 10/16/1910/17/2018 urina lysis , compl ete cast type HYDROCHLORIC ACID OPERATOR Not Available [facility] ([facility]) [address] [facility], [place], [address], 10/18/2018 08:09:31 10/16/1910/17/2018 urina lysis , compl ete crystals HYDROCHLORIC ACID OPERATOR Not Available [facility] ([facility]) [address] [facility], [place], [address], 10/18/2018 08:09:31 10/16/1910/17/2018 urina lysis , compl ete crystal type HYDROCHLORIC ACID OPERATOR Not Available [facility] ([facility]) [address] [facility], [place], [address], 10/18/2018 08:09:31 10/16/1910/17/2018 urina lysis , compl ete mucus threads PRESEN T not estab. Not Available [facility] ([facility]) [address] [facility], [place], [address], 10/18/2018 08:09:31 10/16/1910/17/2018 urina lysis , compl ete bacteria FEW none seen/f ew Not Available [facility] ([facility]) [address] [facility], [place], [address], 10/18/2018 08:09:31 10/16/1910/17/2018 urina lysis , compl ete yeast HYDROCHLORIC ACID OPERATOR Not Available [facility] ([facility]) [address] [facility], [place], [address], 10/18/2018 08:09:31 10/16/1910/17/2018 urina lysis , compl ete trichomonas HYDROCHLORIC ACID OPERATOR Not Available [facility] ([facility]) [address] [facility], [place], [address], 10/18/2018 08:09:31 10/16/1910/17/2018 urina lysis , compl ete comment HYDROCHLORIC ACID OPERATOR Not Available [facility] ([facility]) [address] [facility], [place], [address], 10/18/2018 08:09:31 10/16/19 19 10/17/2018 lipid panel , serum cholesterol, total 241 mg/dL 100-19 9 above high normal Not Available [facility] ([facility]) [address] [place], [address], 10/18/2018 08:09:32 10/16/1910/17/2018 lipid panel , serum triglyceride s 151 mg/dL 0-149 above high normal Not Available [facility] ([facility]) [address] [place], [address], 10/18/2018 08:09:32 10/16/19 19 10/17/2018 lipid panel , serum HDL cholesterol 33 mg/dL >39 below low normal Not Available [facility] ([facility]) [address] [facility] [facility], [place], [address], 10/18/2018 08:09:32 10/16/19 19 10/17/2018 lipid panel , serum VLDL cholesterol tiesha 30 mg/dL 5-40 Not Available [facility] ([facility]) [address] [place], [address], 10/18/2018 08:09:32 10/16/1910/17/2018 lipid panel , serum LDL cholesterol calc 178 mg/dL 0-99 above high normal Not Available [facility] ([facility]) [address] [place], [address], 10/18/2018 08:09:32 10/16/1910/17/2018 lipid panel , serum comment: HYDROCHLORIC ACID OPERATOR Not Available [facility] ([facility]) [address] [place], [address], 10/18/2018 08:09:32 10/16/19 19 10/17/2018 HbA1c (hemo globi n A1c), blood hemoglobin A1C 5.6 % 4.8-5. 6 Predi abete s: 5.7 - 6.4 Diabe andrew: >6.4 Glyce hilario contr ol for adult s with diabe andrew: <7.0 Not Available [facility] ([facility]) [address] [facility], [place], [address], 10/18/2018 08:09:32 10/16/1910/17/2018 TSH, ultra -sens itive , serum TSH 7.880 uIU/m L 0.450- 4.500 above high normal Not Available [facility] ([facility]) [address] [place], [address], 10/18/2018 08:09:33 10/16/1910/18/2018 TSH, ultra -sens itive , serum T4,free (direct) 0.90 NG/dL 0.82-1 .77 Not Available [facility] ([facility]) [address] [facility], [place], [address], 10/18/2018 08:09:33 11/14/1911/13/2018 rapid strep group A, throa t Strep negati ve Not Available In-Office Order Internal Use Only DO Not Attach Compendium DO Not Attach Compendium, Do Not Delete/merge, [id number] 11/13/2018 09:50:37 03/30/20 20 04/01/2020 pap, IG + HPV, cervi tiesha HPV aptima Negati ve negati ve This nucle ic acid ampli ficat ion test detec ts fourt een high- risk HPV types (16,1 8,31, 33,35 ,39,4 5,51, 52,56 ,58,5 9,66, 68) witho ut diffe renti ation . Not Available [facility] ([facility]) [address] [facility], [place], [address], 04/03/2020 20:08:02 03/30/20 20 04/03/2020 pap, IG + HPV, cervi tiesha diagnosis: Commen t NEGAT JOHN FOR INTRA EPITH ELIAL LESIO N OR PARESH BREWER . Not Available [facility] ([facility]) [address] [facility], [place], [address], 04/03/2020 20:08:02 03/30/20 20 04/03/2020 pap, IG + HPV, cervi tiesha specimen adequacy: Paty castillo Satis facto ry for evalu ation . Endoc ervic al and/o r squam ous metap lasti c cells (endo cervi tiesha compo nent) are prese nt. Not Available [facility] ([facility]) [address] [facility], [place], [address], 04/03/2020 20:08:02 03/30/20 20 04/03/2020 pap, IG + HPV, cervi tiesha clinician provided ICD10: Paty castillo Z20.2 Z01.4 19 Z11.5 1 Not Available [facility] ([facility]) [address] [place], [address], 04/03/2020 20:08:02 03/30/20 20 04/03/2020 pap, IG + HPV, cervi tiesha performed by: Sai Solano (ASCP ) Not Available [facility] ([facility]) [address] [place], [address], 04/03/2020 20:08:02 03/30/20 20 04/03/2020 pap, IG + HPV, cervi tiesha . . Not Available [facility] ([facility]) [address] [place], [address], 04/03/2020 20:08:02 03/30/20 20 04/03/2020 pap, IG + HPV, cervi tiesha note: Paty castillo The Pap smear is a scree shahana test desig riki to aid in the detec tion of trisha ligna nt and malig nant condi tions of the uteri ne cervi x. It is not a diagn ostic proce dure and shoul d not be used as the sole means of detec ting cervi tiesha dona blankenship Both false -posi tive and false -nega tive repor ts do occur . Not Available [facility] ([facility]) [address] [facility], [place], [address], 04/03/2020 20:08:02 03/30/20 20 04/03/2020 pap, IG + HPV, cervi tiesha test methodology: Commen t This liqui d based ThinP rep(R ) pap test was jim lyn with the use of an image guide aguilar fall. Not Available [facility] ([facility]) [address] [facility], [place], [address], 04/03/2020 20:08:02 03/30/20 20 04/02/2020 bacte rial vagin osis panel , vagin al chlamydia trachomatis, MARY Negati ve negati ve Not Available [facility] ([facility]) [address] [place], [address], 04/08/2020 06:13:46 03/30/20 20 04/02/2020 bacte rial vagin osis panel , vagin al neisseria gonorrhoeae, MARY Negati ve negati ve Not Available [facility] ([facility]) [address] [place], [address], 04/08/2020 06:13:46 03/30/20 20 04/03/2020 bacte rial vagin osis panel , vagin al trich vag by MARY Negati ve negati ve Not Available [facility] ([facility]) [address] [place], [address], 04/08/2020 06:13:46 03/30/20 20 04/07/2020 bacte rial vagin osis panel , vagin al hsv 1 MARY Negati ve negati ve Not Available [facility] ([facility]
--- OUTSIDE RECORDS SUMMARY | 2025-01-19 15:03 | XMS_ITS | Patient Health Record ---
Author Organization [facility] Address [address] [place] [address] Care Team Providers Care Singe Machine Operator Name Role Phone José Miguel Chavez Primary Care Provider Allergies Allergen (clinical drug ingredient) Drug/Non Drug Allergy documented on EMR Reaction Allergy Type Onset Date Status sulfamethoxazole / trimethoprim Bactrim Prateek's Anup Syndrome Drug Allergy Active Results Component Value Reference Range Notes Hepatitis C Virus Antibody w /Rflx to Quantitative Real-time PCR ([id number]) Reviewed date:06/23/2024 10:28:00 AM Interpretation: Performing Lab:[facility] [employer] [facility], Phone - [phone], Director - [facility] Notes/Report: HCV Ab Non Reactive Non Reactive Interpretation: Not infected with HCV unless early or acute infection is suspected (which may be delayed in an immunocompromised individual), or other evidence exists to indicate HCV infection. HIV Screen *HIV 1, 2 Ab, p24 Ag ([id number]) Reviewed date:06/23/2024 10:28:00 AM Interpretation: Performing Lab:[facility], [employer] [facility], Phone - [phone], Director - [facility] Notes/Report: HIV Ab/p24 Ag Screen Non Reactive Non Reactive HIV-1/HIV-2 antibodies and HIV-1 p24 antigen were NOT detected. There is no laboratory evidence of HIV infection. HIV Negative Lipid Panel* Reviewed date:06/23/2024 10:28:00 AM Interpretation: Performing Lab:[facility], Phone - [phone], Director - [facility] Notes/Report: Cholesterol, Total 195 100-199 mg/dL Triglycerides 178 0-149 mg/dL HDL Cholesterol 44 >39 mg/dL VLDL Cholesterol Domo 31 5-40 mg/dL LDL Chol Calc ([facility]) 120 0-99 mg/dL CMP 14 Comprehensive Metabol ic Panel* Reviewed date:06/23/2024 10:28:00 AM Interpretation: Performing Lab:[email or web address] [place], [address] [facility], Phone - [phone], Director - [facility] Notes/Report: Glucose 88 70-99 mg/dL BUN 9 6-24 mg/dL Creatinine 0.81 0.57-1.00 mg/dL eGFR 92 >59 mL/min/1.73 BUN/Creatinine Ratio 11 9-23 Sodium 138 134-144 mmol/L Potassium 4.2 3.5-5.2 mmol/L Chloride 99 96-106 mmol/L Carbon Dioxide, Total 22 20-29 mmol/L Calcium 9.7 8.7-10.2 mg/dL Protein, Total 7.6 6.0-8.5 g/dL Albumin 4.6 3.9-4.9 g/dL Globulin, Total 3.0 1.5-4.5 g/dL Bilirubin, Total 0.5 0.0-1.2 mg/dL Alkaline Phosphatase 78 44-121 IU/L AST (SGOT) 24 0-40 IU/L ALT (SGPT) 26 0-32 IU/L TSH Rfx on Abnormal to Free T4 Reviewed date:06/23/2024 10:28:00 AM Interpretation: Performing Lab:[email or web address] [place], [address] [facility], Phone - [phone], Director - [facility] Notes/Report: TSH 3.000 0.450-4.500 uIU/mL Reason For Referral Reason FAMHX OF COLON AND O THER CANCERS Diagnosis 1 Family history of ca ncer (Z80.9) Referral Organization [facility] Referring Provider First Name José Miguel Referring Provider Last Name Kathy Referring Provider Speciality Internal M edicine Referred Provider Specialty Gastroentero logy General Notes NAVNEET Gonzalez, Nohemi Burton 06/24/2024 07:18:22 AM >Referral to Gastroenterology [facility]. Letter to pt. Clinical Notes Gastroenterology [facility], [facility] [address], , [address], [facility] [address], , Referral Priority Routine Medications Medication SIG (Take, Route, Frequency, Duration) Notes Start Date End Date Status Daily-Moiz Multivitamin - TAKE 1 TABLET BY MOUTH EVERY DAY for 30 Active Calcium Carb-Cholecalciferol 600-10 MG-MCG TAKE 1 TABLET BY MOUTH TWICE A DAY for 90 Active MiraLax 17 GM 1 packet mixed with 8 ounces of fluid Orally Once a day 07/12/2022 Active Acyclovir 800 MG TAKE 1 TABLET BY EBRYL TH EVERY DAY for 30 Active Atorvastatin Calcium 20 MG TAKE 1 TABLET BY MOUTH EVERY DAY for 90 Active Levothyroxine Sodium 100 MCG TAKE 1 TABL ET BY MOUTH EVERY DAY for 90 Active Immunizations Vaccine Route Administration Date Status Comme nts FLU VAC NO PRSV 4VAL 6 mo+ IM Intramuscular 06/25/2021 Administered Patient tolerat ed injection well. Patient voiced no concerns and had no questions today when giving the flu shot FLU VAC NO PRSV 4VAL 6 mo+ IM Intramuscular 07/12/2022 Administered Pt tolerated injection well. Pt voiced no questions or concerns. Social History Tobacco Use: Social History Observation Description Date Details (start date - stop date) Never Smoker NA - NA Sex Assigned At : Social History Observation Description Sex Assigned At Female Alcohol Screen (Audit-C) Question Answer Notes Did you have a drink containing alcohol in the p ast year? No Points 0 Interpretation Negative Tobacco Control (Standard) Question Answer Notes Tobacco use: Nonsmoker Problems Problem Type SNOMED Code ICD Code Onset Dates Problem Status W/U Status Risk Notes Problem 637724888 Other specified hypothyroidism (E03.8) Active confirmed Problem 40215257 Autoimmune thyroiditis (E06.3) Active confirmed Problem 702242213 Mixed hyperlipidemia (E78.2) 1 Active confirmed Problem Nicotine dependence, unspecified, uncomplicated (F17.200) Active confirmed Problem 99409697 Other chronic pa in (G89.29) Active confirmed Problem 256574049 Secondary amenorrhea (N91.1) Active confirmed Problem 48068835 Constipation, unspecified constipation type (K59.00) Active confirmed Problem High cholesterol (97385806) High cholesterol (E78.00) 1 Active confirmed Vital Signs Heart Rate 77 /min 06/22/2024 Respiratory Rate 16 /min 06/22/2024 Blood pressure diastolic 84 mm Hg 06/22/2024 Oximetry 99 % 06/22/2024 Height 66 in 06/22/2024 Blood pressure systolic 124 mm Hg 06/22/2024 Weight 198.4 lbs 06/22/2024 BMI 32.02 kg/m2 06/22/2024 Encounters Encounter Location Date Provider Diagnosis [address] [place] [address] 06/22/2024 José Miguel Chavez Autoimmune thyroidit is E06.3 ; High cholesterol E78.00 ; Other specified hypothyroidism E03.8 ; Exposure to potential infection Z20.9 ; Nutritional counseling Z71.3 and Family history of cancer Z80.9 Assessments Encounter Date Diagnosis (ICD Code) Assessment Notes Treatment Notes Treatment Clinical Notes Section Notes 06/22/2024 Autoimmune thyroiditis (ICD-10 - E06.3) DISCUSSED PROPER DOSING OF LEVOTHYROXINE AND SHE WILL TAKE AT 5 AM. 06/22/2024 High cholesterol (ICD-10 - E78.00) DISCUSSED MEDITERRANEAN DIET, SENT INFO ON THAT AND ON BODY WEIGHT EXERCISES 06/22/2024 Other specified hypothyroidism (ICD-10 - E03.8) 06/22/2024 Exposure to potential infection (ICD-10 - Z20.9) 06/22/2024 Nutritional counseling (ICD-10 - Z71.3) 06/22/2024 Family history of cancer (ICD-10 - Z80.9) POSSIBLE VIERA SYNDROME Plan Of Treatment No Information Insurance Providers Payer Name Payer Address Payer Phone Subscriber Number Group Number Insured Name Patient Relationship to Insured Coverage Start Date Coverage End Date R [address] [address] [place] [address] [id number] [employer] Ashley Self - patient is the insured 3 [facility] [address] [place] [address] [id number] [employer] Self - patient is the insured 1 1 [facility] [address] [address] [place] [address] [id number] [employer] Self - patient is the insured 3 3 Medical (General) History Medical History History ICD Code High cholesterol E78.00 Autoimmune thyroiditis E06.3 Surgical History Surgery Date(Month/Year) 2004 Hospitalization History Reason Date(Month/Year)
--- OUTSIDE RECORDS SUMMARY | 2025-01-19 15:03 | XMS_ITS | Clinical Summary ---
Author Organization [facility] Address [address] [place] [address] Care Team Providers Care Gaming Investigator Name Role Phone Unavailable Primary Care Provider Unavailabl e Source Comments [facility],non-owned Affiliates and Associated Physician Practices is amultiple site organization consisting of ambulatory clinics and hospital sitesin [place], [place], [place] and [place]. This disclosure is being madepursuant to the Care Everywhere program and may not contain all information available regarding this patient. Last updated 18.[facility] [employer] Allergies Active Allergy Reactions Criticality Noted Date Comments Sulfamethoxazole W-Trimethoprim Eye Discomfort 08/22/2021 And aches in legs Medications * Be aware that medications may not be up to date on this document. Alwaysverify current medications with the patient. acyclovir (ZOVIRAX) 800 MG tablet Take 1 tablet by mouth once daily 07/29/2021 Active atorvastatin (LIPITOR) 20 MG tablet Take 1 tablet by mouth once daily 08/06/2021 Active Calcium Carb-Cholecalci ferol (CALCIUM CARBONATE-VITAM IN D3) 600-400 MG-UNIT Take 1 tablet by mouth 2 times daily 07/24/2021 Active SLYND 4 MG TABS tablet Take 1 tablet by mouth once daily 08/15/2021 Active levothyroxine (SYNTHROID) 100 MCG tablet Take 1 tablet by mouth once daily 08/22/2021 Active Multiple Vitamin (DAILY-CATRACHITA MULTIVITAMIN) TABS Take 1 tablet by mouth once daily 07/24/2021 Active tiZANidine (ZANAFLEX) 4 MG tablet Take 1 tablet by mouth at bedtime 08/16/2021 Active Active Problems No known active problems Immunizations Immunization Administration Dates Next Due INFLUENZA VACCINE 06/22/2021 Social History Tobacco Use Types Packs/Day Years Used Date Smoking Tobacco: Former Smokeless Tobacco: Never Comments Unknown Sex and Gender Information Value Date Recorded Sex Assigned at Not on file Legal Sex Female 5:52 PM CDT Gender Identity Not on file Sexual Orientation Not on file Last Filed Vital Signs Vital Sign Reading Time Taken Comments Blood Pressure 149/95 08/29/2021 11:52 AM SUPERVISOR MAPPING Pulse 113 08/29/2021 11:52 AM SUPERVISOR MAPPING Temperature - - Respiratory Rate - - Oxygen Saturation - - Inhaled Oxygen Concentration - - Weight 72.6 kg (160 lb) 08/29/2021 11:52 AM SUPERVISOR MAPPING Height 167.6 cm (5' 6 ) 08/22/2021 1:44 PM SUPERVISOR MAPPING Body Mass Index 25.82 08/22/2021 1:44 PM SUPERVISOR MAPPING Plan of Treatment Health Maintenance Due Date Last Done Comments MAMMOGRAM 1981 HIV SCREENING 02/21/1996 HEPATITIS C SCREENING 02/16/1999 DTAP/TDAP/TD VACCINES (1 - Tdap) 02/21/2000 HEPATITIS B VACCINE (1 of 3 - 19+ 3-dose series) 02/21/2000 SCREENING FOR DIABETES 08/22/2021 COVID-19 VACCINE ( - 2023-2 5 season) 2024 DEPRESSION SCREENING 09/08/2024 INFLUENZA VACCINE (Season Ended) 2025 06/22/20 ZOSTER VACCINE (1 of 2) 2031 HIB VACCINE Aged Out No longer eligi ble based on patient's age to complete this topic HPV VACCINE Aged Out No longer eligi ble based on patient's age to complete this topic MENINGOCOCCAL (Group B) VACC INE SHARED DECISION-MAKING Aged Out No longer eligibl e based on patient's age to complete this topic MENINGOCOCCAL GROUPS A/C/Y/W VACCINE Aged Out No longer eligible b ased on patient's age to complete this topic PNEUMOCOCCAL VACCINE Aged Out No long er eligible based on patient's age to complete this topic Insurance [facility]
== END 2025-01-19 14:58 | disposition home or self-care (01) ==
LOC: ANHIMG 15:01
PROVIDERS: PCP Internal Medicine; Visit Provider Nurse Practitioner
DX: Z12.31 Encounter for screening mammogram for malignant neoplasm of breast (principal); R92.8 Other abnormal and inconclusive findings on diagnostic imaging of breast
CPT/HCPCS: 77063; 77067

== ENCOUNTER 2025-02-08 13:23 | Outpatient (CLI) | payer OTHER, SELFPAY ==
--- NOTE | ~2025-02-08 | MM_ITS ---
MM DIAGNOSTIC DIGNA LT W JIE AND US BREAST LT LIMITED INDICATION: 44-year old female; BI-RADS 0, new nodular asymmetry left breast. COMPARISON: 01/19/2025 TECHNIQUE: Digital breast tomosynthesis True lateral and spot compression CC and MLO views of the LEF T breast were obtained with computer-aided detection to assist in interpretation of the study. FINDINGS: There are scattered areas of fibroglandular density. The asymmetry of concern in the inferior medial left breast persists as a bilobed mass. Ultrasound wa s performed for further evaluation. LEFT BREAST ULTRASOUND FINDINGS: Targeted evaluation of the area of concern was completed. There is a 0.5 x 0.4 x 0.5 cm bilobed anech oic mass at 7:00 subareolar location in the LEFT breast that correlates to the area of Mammographic f inding. IMPRESSION: Benign LEFT breast simple cyst correlates to mammographic finding. No further investigation necessary . RECOMMENDATION: ANNUAL SCREENING BILATERAL MAMMOGRAPHY IN 12 MONTHS BI-RADS 2, BENIGN Reviewed, dictated and finalized at location B. IMPRESSION: Benign LEFT breast simple cyst correlates to mammographic finding. No further i nvestigation necessary. RECOMMENDATION: ANNUAL SCREENING BILATERAL MAMMOGRAPHY IN 12 MONTHS BI-RADS 2, BENIGN
--- OUTSIDE RECORDS SUMMARY | 2025-02-08 13:36 | XMS_ITS | Data Portability ---
Author Organization [facility] Address [address] [place] [address] Assessment No assessment recorded. Plan of Treatment Reminders Order Date Submit Date Provider Last Modified By Organization Details Last Modified Time Details Appointments None recorded. Lab pap, IG + HPV, cervical - please use Z11.51 in addition to code above for HPV testing. 2020 021 [facility], [address], [place], [address], 1 03:08:19 bacterial vaginosis panel, vaginal 2020 021 [facility] (Centralized Electronic Ordering - All Locations), Patient Can Go To The Location Of Their Choice, [id number] 09:13:01 culture, vaginal/r ectal, streptoco ccus group B 2020 021 [facility] (Centralized Electronic Ordering - All Locations), Patient Can Go To The Location Of Their Choice, [id number] 1 09:13:02 urinalysi s, dipstick 2019 020 [email or web address] In-Office Order, Internal Use Only DO Not Attach Compendium DO Not Attach Compendium, Do Not Delete/merge, [id number] 0 17:21:15 pap, IG + HPV, cervical - please use Z11.51 in addition to code above for HPV testing. 2019 020 [facility], [address], [place], [address], 0 20:08:02 bacterial vaginosis panel, vaginal 2019 020 [facility] (Centralized Electronic Ordering - All Locations), Patient Can Go To The Location Of Their Choice, [id number] 0 06:13:46 culture, vaginal/r ectal, streptoco ccus group B 2019 020 [facility] (Centralized Electronic Ordering - All Locations), Patient Can Go To The Location Of Their Choice, [address] 0 06:13:46 lipid panel, serum 2019 020 [email or web address] [facility], [address] [place] [address], [address], [place], [address], 0 10:11:21 TSH + free T4, serum 2019 020 WENDY [facility], [address] [place] [address], [address], [place], [address], 0 09:11:31 rapid strep group A, throat 2018 019 [email or web address] In-Office Order, Internal Use Only DO Not Attach Compendium DO Not Attach Compendium, Do Not Delete/merge, [id number] 9 09:56:41 lipid panel, serum 2018 019 [email or web address] [facility], [address] [place] [address], [address], [place], [address], 9 10:01:38 CBC w/ auto diff 2018 019 [email or web address] [facility], [address] [place] [address] [address], [address], [place], [address], 9 10:01:38 TSH, ultra-sen sitive, serum 2018 019 [email or web address] [facility], [address] [place] [address] [address], [address], [place], [address], 0 16:40:53 Referral podiatris t referral 2019 020 [email or web address] Not available 0 16:34:29 Procedures None recorded. Surgeries None recorded. Imaging US, pelvis, complete 2020 021 [facility] ([facility]), [address] [place], [address], 1 14:04:39 MAMMO, screening , bilateral 2020 021 [facility] ([facility]), [address] [place] [address], [address], 1 16:32:46 Medication Orders multivita min tablet 2020 021 [facility] [address], [address], 1 17:15:48 Calcium with Vitamin D 600 mg-10 mcg (400 unit) tablet 2020 021 [facility] [address], [address], 1 17:15:48 Slynd 4 mg (28) tablet 2020 021 [facility] [address], [address], 1 17:15:27 acyclovir 800 mg tablet 2019 020 [facility] [address], [address], 0 16:19:11 Denavir 1 % topical cream 2019 020 [email or web address] [facility] [address] In [facility], [address] [place] [address], [address], 1 16:34:08 terbinafi ne HCl 250 mg tablet 2019 020 [facility] [address], [address], 0 16:34:20 Slynd 4 mg (28) tablet 2019 020 [facility] [address], [address], 0 16:19:12 multivita min tablet 2019 [facility] [address], [address], 0 16:19:12 Calcium with Vitamin D 600 mg-10 mcg (400 unit) tablet 2019 020 [facility] [address], [address], 0 16:19:11 atorvasta tin 20 mg tablet 2019 020 [facility] [address], [address], 0 15:57:47 multivita min tablet 2019 020 [facility] [address], [address], 0 15:56:41 Calcium with Vitamin D 600 mg-10 mcg (400 unit) tablet 2019 020 [facility] [address], [address], 0 15:56:42 acyclovir 800 mg tablet 2019 020 [facility] [address] In [facility] [address] [place], [address], 0 15:56:39 norethind daniel acetate 5 mg tablet 2019 020 [email or web address] [facility] [address] In [facility] [address] [place], [address], 0 16:15:10 levothyro xine 100 mcg tablet 2019 020 [facility] [address] In [facility], [address] [place], [address], 0 15:56:39 Patient TargetsNo targets recorded. Patient Instructions Encounter Date Encounter Id Patient Instructions Last Modified By Organization Details Last Modified Time 11/13/2018 [id number] sore throat: care instructions oajao Not available 11/13/2018 09:56:41 Low CHO, low saturated fat diet Labs Follow up in 2 months oajao Not available 11/13/2018 10:07:52 Her lab results were discussed in detail oajao Not available 11/13/2018 10:08:06 02/21/2020 [id number] heavy menstrual periods: care instructions [email or web address] Not available 02/21/2020 15:56:36 hypothyroidism: care instructions mwasserman Not available 02/21/2020 15:56:36 03/05/2021 [id number] mammogram: about this test [email or web address] Not available 03/05/2021 17:15:48 mammogram screening patient instructions [email or web address] Not available 03/05/2021 17:15:48 Reason for Referral Commercial Assistant Referral for Onyc homycosis of toenails Referring Physician: Marco Fall, CHILD SUPPORT OFFICER, Encounter Date: 03/30/2020 Results Created Date Observation Date Name Description Value Unit Range Abnormal Flag Note LastModifiedBy Organization Detail LastModifiedTime 10/16/19 19 10/17/2018 CBC w/ auto diff WBC 10.3 x10e3 /uL 3.4-10 .8 Not Available [facility] ([facility]) [address] [facility], [place], [address], 10/18/2018 08:09:30 10/16/1910/17/2018 CBC w/ auto diff RBC 4.75 x10e6 /uL 3.77-5 .28 Not Available [facility] ([facility]) [address] [facility], [place], [address], 10/18/2018 08:09:30 10/16/1910/17/2018 CBC w/ auto diff hemoglobin 16.5 g/dL 11.1-1 5.9 above high normal Not Available [facility] ([facility]) [address] [facility], [place], [address], 10/18/2018 08:09:30 10/16/1910/17/2018 CBC w/ auto diff hematocrit 48.2 % 34.0-4 6.6 above high normal Not Available [facility] ([facility]) [address] [facility], [place], [address], 10/18/2018 08:09:30 10/16/1910/17/2018 CBC w/ auto diff MCV 102 fL 79-97 above high normal Not Available [facility] ([facility]) [address] [facility], [place], [address], 10/18/2018 08:09:30 10/16/1910/17/2018 CBC w/ auto diff MCH 34.7 pg 26.6-3 3.0 above high normal Not Available [facility] ([facility]) [address] [facility], [place], [address], 10/18/2018 08:09:30 10/16/1910/17/2018 CBC w/ auto diff MCHC 34.2 g/dL 31.5-3 5.7 Not Available [facility] ([facility]) [address] [facility], [place], [address], 10/18/2018 08:09:30 10/16/1910/17/2018 CBC w/ auto diff RDW 12.4 % 12.3-1 5.4 Not Available [facility] ([facility]) [address] [place], [address], 10/18/2018 08:09:30 10/16/1910/17/2018 CBC w/ auto diff platelets 281 x10e3 /uL 150-37 9 Not Available [facility] ([facility]) [address] [facility], [place], [address], 10/18/2018 08:09:30 10/16/19 19 10/17/2018 CBC w/ auto diff neutrophils 74 % not estab. Not Available [facility] ([facility]) [address] [place], [address], 10/18/2018 08:09:30 10/16/1910/17/2018 CBC w/ auto diff lymphs 19 % not estab. Not Available [facility] ([facility]) [address] [facility], [place], [address], 10/18/2018 08:09:30 10/16/1910/17/2018 CBC w/ auto diff monocytes 6 % not estab. Not Available [facility] ([facility]) [address] [facility], [place], [address], 10/18/2018 08:09:30 10/16/1910/17/2018 CBC w/ auto diff eos 1 % not estab. Not Available [facility] ([facility]) [address] [facility], [place], [address], 10/18/2018 08:09:30 10/16/1910/17/2018 CBC w/ auto diff basos 0 % not estab. Not Available [facility] ([facility]) [address] [facility], [place], [address], 10/18/2018 08:09:30 10/16/1910/17/2018 CBC w/ auto diff immature cells WELL SERVICES OPERATOR Not Available [facility] ([facility]) [address] [facility], [place], [address], 10/18/2018 08:09:30 10/16/1910/17/2018 CBC w/ auto diff neutrophils (absolute) 7.7 x10e3 /uL 1.4-7. 0 above high normal Not Available [facility] ([facility]) [address] [facility], [place], [address], 10/18/2018 08:09:30 10/16/1910/17/2018 CBC w/ auto diff lymphs (absolute) 1.9 x10e3 /uL 0.7-3. 1 Not Available [facility] ([facility]) [address] [facility], [place], [address], 10/18/2018 08:09:30 10/16/1910/17/2018 CBC w/ auto diff monocytes(ab solute) 0.6 x10e3 /uL 0.1-0. 9 Not Available [facility] ([facility]) [address] [facility], [place], [address], 10/18/2018 08:09:30 10/16/1910/17/2018 CBC w/ auto diff eos (absolute) 0.1 x10e3 /uL 0.0-0. 4 Not Available [facility] ([facility]) [address] [facility], [place], [address], 10/18/2018 08:09:30 10/16/1910/17/2018 CBC w/ auto diff baso (absolute) 0.0 x10e3 /uL 0.0-0. 2 Not Available [facility] ([facility]) [address] [place], [address], 10/18/2018 08:09:30 10/16/1910/17/2018 CBC w/ auto diff immature granulocytes 0 % not estab. Not Available [facility] ([facility]) [address] [facility], [place], [address], 10/18/2018 08:09:30 10/16/1910/17/2018 CBC w/ auto diff immature grans (abs) 0.0 x10e3 /uL 0.0-0. 1 Not Available [facility] ([facility]) [address] [place], [address], 10/18/2018 08:09:30 10/16/1910/17/2018 CBC w/ auto diff NRBC WELL SERVICES OPERATOR Not Available [facility] ([facility]) [address] [place], [address], 10/18/2018 08:09:30 10/16/1910/17/2018 CBC w/ auto diff hematology comments: WELL SERVICES OPERATOR Not Available [facility] ([facility]) [address] [place], [address], 10/18/2018 08:09:30 10/16/1910/17/2018 CMP, serum or plasm a glucose 99 mg/dL 65-99 Not Available [facility] ([facility]) [address] [place], [address], 10/18/2018 08:09:30 10/16/1910/17/2018 CMP, serum or plasm a BUN 11 mg/dL 6-20 Not Available [facility] ([facility]) [address] [place], [address], 10/18/2018 08:09:30 10/16/1910/17/2018 CMP, serum or plasm a creatinine 0.89 mg/dL 0.57-1 .00 Not Available [facility] ([facility]) [address] [place], [address], 10/18/2018 08:09:30 10/16/1910/17/2018 CMP, serum or plasm a eGFR if nonafricn AM 83 mL/mi n/1.7 3 >59 Not Available [facility] ([facility]) [address] [place], [address], 10/18/2018 08:09:30 10/16/19 19 10/17/2018 CMP, serum or plasm a eGFR if africn AM 96 mL/mi n/1.7 3 >59 Not Available [facility] ([facility]) [address] [place], [address], 10/18/2018 08:09:30 10/16/1910/17/2018 CMP, serum or plasm a BUN/creatini ne ratio 12 9-23 Not Available [facility] ([facility]) [address] [place], [address], 10/18/2018 08:09:30 10/16/1910/17/2018 CMP, serum or plasm a sodium 138 mmol/ L 134-14 4 Not Available [facility] ([facility]) [address] [place], [address], 10/18/2018 08:09:30 10/16/1910/17/2018 CMP, serum or plasm a potassium 4.6 mmol/ L 3.5-5. 2 Not Available [facility] ([facility]) [address] [place], [address], 10/18/2018 08:09:30 10/16/1910/17/2018 CMP, serum or plasm a chloride 102 mmol/ L 96-106 Not Available [facility] ([facility]) [address] [place], [address], 10/18/2018 08:09:30 10/16/1910/17/2018 CMP, serum or plasm a carbon dioxide, total 23 mmol/ L 20-29 Not Available [facility] ([facility]) [address] [place], [address], 10/18/2018 08:09:30 10/16/1910/17/2018 CMP, serum or plasm a calcium 9.9 mg/dL 8.7-10 .2 Not Available [facility] ([facility] [address] [facility] [place], [address], 10/18/2018 08:09:30 10/16/1910/17/2018 CMP, serum or plasm a protein, total 7.9 g/dL 6.0-8. 5 Not Available [facility] ([facility] [address] [facility] [place], [address], 10/18/2018 08:09:30 10/16/1910/17/2018 CMP, serum or plasm a albumin 4.8 g/dL 3.5-5. 5 Not Available [facility] ([facility] [address] [facility] [place], [address], 10/18/2018 08:09:30 10/16/1910/17/2018 CMP, serum or plasm a globulin, total 3.1 g/dL 1.5-4. 5 Not Available [facility] ([facility]) [address] [place], [address], 10/18/2018 08:09:30 10/16/1910/17/2018 CMP, serum or plasm a A/G ratio 1.5 1.2-2. 2 Not Available [facility] ([facility]) [address] [place], [address], 10/18/2018 08:09:30 10/16/1910/17/2018 CMP, serum or plasm a bilirubin, total 0.3 mg/dL 0.0-1. 2 Not Available [facility] ([facility]) [address] [place], [address], 10/18/2018 08:09:30 10/16/1910/17/2018 CMP, serum or plasm a alkaline phosphatase 68 IU/L 39-117 Not Available [facility] ([facility]) [address] [place], [address], 10/18/2018 08:09:30 10/16/1910/17/2018 CMP, serum or plasm a AST (SGOT) 18 IU/L 0-40 Not Available [facility] ([facility]) [address] [place], [address], 10/18/2018 08:09:30 10/16/1910/17/2018 CMP, serum or plasm a ALT (SGPT) 18 IU/L 0-32 Not Available [facility] ([facility]) [address] [facility], [place], [address], 10/18/2018 08:09:30 10/16/1910/17/2018 urina lysis , compl ete specific gravity 1.019 1.005- 1.030 Not Available [facility] ([facility]) [address] [facility], [place], [address], 10/18/2018 08:09:31 10/16/1910/17/2018 urina lysis , compl ete pH 7.0 5.0-7. 5 Not Available [facility] ([facility]) [address] [facility], [place], [address], 10/18/2018 08:09:31 10/16/1910/17/2018 urina lysis , compl ete urine-color YELLOW yellow Not Available [facility] ([facility]) [address] [facility], [place], [address], 10/18/2018 08:09:31 10/16/1910/17/2018 urina lysis , compl ete appearance CLEAR clear Not Available [facility] ([facility]) [address] [facility], [place], [address], 10/18/2018 08:09:31 10/16/1910/17/2018 urina lysis , compl ete WBC esterase NEGATI VE negati ve Not Available [facility] ([facility]) [address] [place], [address], 10/18/2018 08:09:31 10/16/1910/17/2018 urina lysis , compl ete protein NEGATI VE negati ve/tra ce Not Available [facility] ([facility]) [address] [place], [address], 10/18/2018 08:09:31 10/16/1910/17/2018 urina lysis , compl ete glucose NEGATI VE negati ve Not Available [facility] ([facility]) [address] [place], [address], 10/18/2018 08:09:31 10/16/1910/17/2018 urina lysis , compl ete ketones NEGATI VE negati ve Not Available [facility] ([facility]) [address] [place], [address], 10/18/2018 08:09:31 10/16/1910/17/2018 urina lysis , compl ete occult blood TRACE negati ve abnormal Not Available [facility] ([facility]) [address] [place], [address], 10/18/2018 08:09:31 10/16/1910/17/2018 urina lysis , compl ete bilirubin NEGATI VE negati ve Not Available [facility] ([facility]) [address] [place], [address], 10/18/2018 08:09:31 10/16/1910/17/2018 urina lysis , compl ete urobilinogen ,semi-qn 1.0 mg/dL 0.2-1. 0 Not Available [facility] ([facility]) [address] [place], [address], 10/18/2018 08:09:31 10/16/1910/17/2018 urina lysis , compl ete nitrite, urine NEGATI VE negati ve Not Available [facility] ([facility]) [address] [place], [address], 10/18/2018 08:09:31 10/16/19 19 10/17/2018 urina lysis , compl ete microscopic examination SEE BELOW: Micro scopi c was indic ated and was perfo rmed. Not Available [facility] ([facility]) [address] [place], [address], 10/18/2018 08:09:31 10/16/19 19 10/17/2018 urina lysis , compl ete WBC 0-5 /hpf 0 - 5 Not Available [facility] ([facility]) [address] [place], [address], 10/18/2018 08:09:31 10/16/1910/17/2018 urina lysis , compl ete RBC 0-2 /hpf 0 - 2 Not Available [facility] ([facility]) [address] [facility], [place], [address], 10/18/2018 08:09:31 10/16/1910/17/2018 urina lysis , compl ete epithelial cells (non renal) 0-10 /hpf 0 - 10 Not Available [facility] ([facility]) [address] [place], [address], 10/18/2018 08:09:31 10/16/1910/17/2018 urina lysis , compl ete epithelial cells (renal) WELL SERVICES OPERATOR Not Available [facility] ([facility]) [address] [place], [address], 10/18/2018 08:09:31 10/16/1910/17/2018 urina lysis , compl ete casts WELL SERVICES OPERATOR Not Available [facility] ([facility]) [address] [place], [address], 10/18/2018 08:09:31 10/16/1910/17/2018 urina lysis , compl ete cast type WELL SERVICES OPERATOR Not Available [facility] ([facility]) [address] [place], [address], 10/18/2018 08:09:31 10/16/1910/17/2018 urina lysis , compl ete crystals WELL SERVICES OPERATOR Not Available [facility] ([facility]) [address] [place], [address], 10/18/2018 08:09:31 10/16/1910/17/2018 urina lysis , compl ete crystal type WELL SERVICES OPERATOR Not Available [facility] ([facility]) [address] [facility], [place], [address], 10/18/2018 08:09:31 10/16/1910/17/2018 urina lysis , compl ete mucus threads PRESEN T not estab. Not Available [facility] ([facility]) [address] [facility], [place], [address], 10/18/2018 08:09:31 10/16/1910/17/2018 urina lysis , compl ete bacteria FEW none seen/f ew Not Available [facility] ([facility]) [address] [facility], [place], [address], 10/18/2018 08:09:31 10/16/1910/17/2018 urina lysis , compl ete yeast WELL SERVICES OPERATOR Not Available [facility] ([facility]) [address] [facility], [place], [address], 10/18/2018 08:09:31 10/16/1910/17/2018 urina lysis , compl ete trichomonas WELL SERVICES OPERATOR Not Available [facility] ([facility]) [address] [facility], [place], [address], 10/18/2018 08:09:31 10/16/1910/17/2018 urina lysis , compl ete comment WELL SERVICES OPERATOR Not Available [facility] ([facility]) [address] [facility], [place], [address], 10/18/2018 08:09:31 10/16/1910/17/2018 lipid panel , serum cholesterol, total 241 mg/dL 100-19 9 above high normal Not Available [facility] ([facility]) [address] [place], [address], 10/18/2018 08:09:32 10/16/1910/17/2018 lipid panel , serum triglyceride s 151 mg/dL 0-149 above high normal Not Available [facility] ([facility]) [address] [place], [address], 10/18/2018 08:09:32 10/16/1910/17/2018 lipid panel , serum HDL cholesterol 33 mg/dL >39 below low normal Not Available [facility] ([facility]) [address] [place], [address], 10/18/2018 08:09:32 10/16/1910/17/2018 lipid panel , serum VLDL cholesterol tiesha 30 mg/dL 5-40 Not Available [facility] ([facility]) [address] [place], [address], 10/18/2018 08:09:32 10/16/1910/17/2018 lipid panel , serum LDL cholesterol calc 178 mg/dL 0-99 above high normal Not Available [facility] ([facility]) [address] [place], [address], 10/18/2018 08:09:32 10/16/1910/17/2018 lipid panel , serum comment: WELL SERVICES OPERATOR Not Available [facility] ([facility]) [address] [place], [address], 10/18/2018 08:09:32 10/16/1910/17/2018 HbA1c (hemo globi n A1c), blood hemoglobin A1C 5.6 % 4.8-5. 6 Predi abete s: 5.7 - 6.4 Diabe andrew: >6.4 Glyce manny contr ol for adult s with diabe andrew: <7.0 Not Available [facility] ([facility]) [address] [place], [address], 10/18/2018 08:09:32 10/16/19 19 10/17/2018 TSH, ultra -sens itive , serum TSH 7.880 uIU/m L 0.450- 4.500 above high normal Not Available [facility] ([facility]) [address] [facility], [place], [address], 10/18/2018 08:09:33 10/16/1910/18/2018 TSH, ultra -sens itive , serum T4,free (direct) 0.90 NG/dL 0.82-1 .77 Not Available [facility] ([facility]) [address] [facility], [place], [address], 10/18/2018 08:09:33 11/14/19 19 11/13/2018 rapid strep group A, throa t Strep negati ve Not Available In-Office Order Internal Use Only DO Not Attach Compendium DO Not Attach Compendium, Do Not Delete/merge, [id number] 11/13/2018 09:50:37 03/30/20 20 04/01/2020 pap, IG + HPV, cervi tiesha HPV aptima Negati ve negati ve This nucle ic acid ampli ficat ion test detec ts fourt een high- risk HPV types (16,1 8,31, 33,35 ,39,4 5,51, 52,56 ,58,5 9,66, 68) witho ut diffe renti ation . Not Available [facility] ([facility]) [address] [facility], [place], [address], 04/03/2020 20:08:02 03/30/20 20 04/03/2020 pap, IG + HPV, cervi tiesha diagnosis: Commen t NEGAT JOHN FOR INTRA EPITH ELIAL LESIO N OR CLAUDY ARBOLEDA . Not Available [facility] ([facility]) [address] [facility], [place], [address], 04/03/2020 20:08:02 03/30/20 20 04/03/2020 pap, IG + HPV, cervi tiesha specimen adequacy: Paty castillo Satis facto ry for evalu ation . Endoc ervic al and/o r squam ous metap lasti c cells (endo cervi tiesha compo nent) are prese nt. Not Available [facility] ([facility]) [address] [place], [address], 04/03/2020 20:08:02 03/30/20 20 04/03/2020 pap, IG + HPV, cervi tiesha clinician provided ICD10: Paty castillo Z20.2 Z01.4 19 Z11.5 1 Not Available [facility] ([facility]) [address] [place], [address], 04/03/2020 20:08:02 03/30/20 20 04/03/2020 pap, IG + HPV, cervi tiesha performed by: Paty Ramos , Sai castillo (ASCP ) Not Available [facility] ([facility]) [address] [place], [address], 04/03/2020 20:08:02 03/30/20 20 04/03/2020 pap, IG + HPV, cervi tiesha . . Not Available [facility] ([facility]) [address] [place], [address], 04/03/2020 20:08:02 03/30/20 20 04/03/2020 pap, IG [...] sole means of detec ting cervi tiesha cance r. Both false -posi tive and false -nega tive repor ts do occur . Not Available [facility] ([facility]) [address] [place], [address], 04/03/2020 20:08:02 03/30/20 20 04/03/2020 pap, IG + HPV, cervi tiesha test methodology: Commen t This liqui d based ThinP rep(R ) pap test was jim lyn with the use of an image guide aguilar briseno Not Available [facility] ([facility]) [address] [facility], [place], [address], 04/03/2020 20:08:02 03/30/20 20 04/02/2020 bacte rial vagin osis panel , vagin al chlamydia trachomatis, MARY Negati ve negati ve Not Available [facility] ([facility]) [address] [place], [address], 04/08/2020 06:13:46 03/30/20 20 04/02/2020 bacte rial vagin osis panel , vagin al neisseria gonorrhoeae, MARY Negati ve negati ve Not Available [facility] ([facility]) [address] [place], [address], 04/08/2020 06:13:46 03/30/20 20 04/03/2020 bacte rial vagin osis panel , vagin al trich vag by MARY Negati ve negati ve Not Available [facility] ([facility]) [address] [place], [address], 04/08/2020 06:13:46 03/30/20 20 04/07/2020 bacte rial vagin osis panel , vagin al hsv 1 MARY Negati ve negati ve Not Available [facility] ([facility]) [address] [place], [address], 04/08/2020 06:13:46 03/30/20 20 04/07/2020 bacte rial vagin osis panel , vagin al hsv 2 MARY Negati ve negati ve Not Available [facility] ([facility]) [address] [place], [address], 04/08/2020 06:13:46 03/30/2004/08/2020 bacte rial vagin osis panel , vagin al atopobium vaginae Low - 0 score Not Available [facility] ([facility]) [address] [facility], [place], [address], 04/08/2020 06:13:46 03/30/2004/08/2020 bacte rial vagin osis panel , vagin al bvab 2 Low - 0 score Not Available [facility] ([facility]) [address] [place], [address], 04/08/2020 06:13:46 03/30/2004/08/2020 bacte rial vagin osis panel , vagin al megasphaera 1 Low - 0 score Calcu late total score by aldo cruz the 3 indiv idual bacte rial vagin osis (BV) marke r score s toget her. Total score is inter prete d as follo ws: Total score 0-1: Indic ates the absen ce of BV. Total score 2: Indet ermin ate for BV. Addit ional clini tiesha data shoul d be evalu ated to estab melissa a diagn osis. Total score 3-6: Indic ates the prese nce of BV. This test was devel oped and its perfo rmanc e pau cteri stics deter mined by [facility]. It has not been clear ed or appro joslyn by the Food and Drug Admin istra tion. The FDA has deter mined that such clear ance or appro weston is not neces brittni. Not Available [facility] ([facility]) [address] [facility], [place], [address], 04/08/2020 06:13:46 03/30/2004/08/2020 bacte rial vagin osis panel , vagin al magdalena albicans, MARY Negati ve negati ve Not Available [facility] ([facility]) [address] [facility], [place], [address], 04/08/2020 06:13:46 03/30/20 20 04/08/2020 bacte rial vagin osis panel , vagin al magdalena glabrata, MARY Negati ve negati ve Not Available [facility] ([facility]) [address] [facility], [place], [address], 04/08/2020 06:13:46 03/30/20 20 04/01/2020 cultu re, vagin al/re ctal, strep tococ cus group B strep gp B MARY Negati ve negati ve Cente rs for Disea se Contr ol and Preve ntion ([facility]) and Ameri can Congr ess of Obste trici ans and Gynec ologi sts (ACOG ) guide lines for preve ntion of perin atal group B strep tococ tiesha (GBS) disea se speci fy co-co llect ion of a vagin al and recta l swab speci men to maxim ize sensi tivit y of GBS detec tion. Per the CDC and ACOG, swabb ing both the lower vagin a and rectu m subst antia lly incre ases the yield of detec tion chela red with sampl ing the vagin a alone . Penic illin G, ampic illin , or cefaz mica are indic ated for intra partu m proph ylaxi s of perin atal GBS colon izati on. Refle x susce ptibi lity testi ng shoul d be perfo rmed prior to use of clind amyci n only on GBS isola andrew from penic illin -vipin rgic women who are consi dered a high risk for anaph ylaxi s. Treat ment with vanco mycin witho ut addit ional testi ng is warra nted if resis tance to clind amyci n is noted . Not Available [facility] ([facility]) [address] [facility], [place], [address], 04/08/2020 06:13:46 03/30/20 20 03/30/2020 urina lysis , dipst ick Leukocytes Trace Not Available In-Offi ce Order Internal Use Only DO Not Attach Compendium DO Not Attach Compendium, Do Not Delete/merge, [id number] 03/30/2020 15:59:03/30/20 20 03/30/2020 urina lysis , dipst ick Nitrite negati ve Not Available In-Office Order Internal Use Only DO Not Attach Compendium DO Not Attach Compendium, Do Not Delete/merge, 03/30/2020 15:59:03/30/20 20 03/30/2020 urina lysis , dipst ick Urobilinogen .2 Not Available In-Of fice Order Internal Use Only DO Not Attach Compendium DO Not Attach Compendium, Do Not Delete/merge, 03/30/2020 15:59:03/30/20 20 03/30/2020 urina lysis , dipst ick Protein 30 Not Available In-Office Order Internal Use Only DO Not Attach Compendium DO Not Attach Compendium, Do Not Delete/merge, 03/30/2020 15:59:03/30/20 20 03/30/2020 urina lysis , dipst ick pH 7.0 Not Available In-Office Order Internal Use Only DO Not Attach Compendium DO Not Attach Compendium, Do Not Delete/merge, 03/30/2020 15:59:03/30/20 20 03/30/2020 urina lysis , dipst ick Blood Large Not Available In-Office Order Internal Use Only DO Not Attach Compendium DO Not Attach Compendium, Do Not Delete/merge, 03/30/2020 15:59:03/30/20 20 03/30/2020 urina lysis , dipst ick Specific [place] 1.020 Not Available In-Off ice Order Internal Use Only DO Not Attach Compendium DO Not Attach Compendium, Do Not Delete/merge, 03/30/2020 15:59:03/30/20 20 03/30/2020 urina lysis , dipst ick Ketone Negati ve Not Available In-Office Order Internal Use Only DO Not Attach Compendium DO Not Attach Compendium, Do Not Delete/merge, 03/30/2020 15:59:03/30/20 20 03/30/2020 urina lysis , dipst ick Bilirubin Negati ve Not Available In-Office Order Internal Use Only DO Not Attach Compendium DO Not Attach Compendium, Do Not Delete/merge, [id number] 03/30/2020 15:59:19 03/30/20 20 03/30/2020 urina lysis , dipst ick Glucose Negati ve Not Available In-Office Order Internal Use Only DO Not Attach Compendium DO Not Attach Compendium, Do Not Delete/merge, 03/30/2020 15:59:19 03/30/20 20 03/30/2020 urina lysis , dipst ick Appearance Slight ly Cloudy Not Available In-Office Order Internal Use Only DO Not Attach Compendium DO Not Attach Compendium, Do Not Delete/merge, 03/30/2020 15:59:19 03/30/20 20 03/30/2020 urina lysis , dipst ick Color Yellow Not Available In-Office Order Internal Use Only DO Not Attach Compendium DO Not Attach Compendium, Do Not Delete/merge, 03/30/2020 15:59:19 04/27/20 20 04/28/2020 TSH + free T4, serum TSH 0.193 uIU/m L 0.450- 4.500 below low normal Not Available [facility] ([facility]) [address] [place], [address], 04/28/2020 09:11:31 04/27/20 20 04/28/2020 TSH + free T4, serum T4,free(dire ct) 1.72 NG/dL 0.82-1 .77 Not Available [facility] ([facility]) [address] [place], [address], 04/28/2020 09:11:31 04/27/20 20 04/28/2020 lipid panel , serum cholesterol, total 158 mg/dL 100-19 9 Not Available [facility] ([facility]) [address] [place], [address], 04/28/2020 09:11:32 04/27/20 20 04/28/2020 lipid panel , serum triglyceride s 104 mg/dL 0-149 Not Available [facility] ([facility]) [address] [place], [address], 04/28/2020 09:11:32 04/27/20 20 04/28/2020 lipid panel , serum HDL cholesterol 38 mg/dL >39 below low normal Not Available [facility] ([facility]) [address] [facility], [place], [address], 04/28/2020 09:11:32 04/27/20 20 04/28/2020 lipid panel , serum VLDL cholesterol tiesha 21 mg/dL 5-40 Not Available [facility] ([facility]) [address] [facility], [place], [address], 04/28/2020 09:11:32 04/27/20 20 04/28/2020 lipid panel , serum LDL cholesterol calc 99 mg/dL 0-99 Not Available [facility] ([facility]) [address] [facility], [place], [address], 04/28/2020 09:11:32 04/27/20 20 04/28/2020 lipid panel , serum comment: [employer] OPERATOR Not Available [facility] ([facility]) [address] [facility], [place], [address], 04/28/2020 09:11:32 03/05/20 21 03/06/2021 IGP, APTIM A HPV diagnosis: Commen t NEGAT JOHN FOR INTRA EPITH ELIAL VAMSHI N OR CLAUDY ARBOLEDA . Not Available [facility] ([facility]) [address] [facility], [place], [address], 03/07/2021 03:08:19 03/05/20 21 03/06/2021 IGP, APTIM A HPV specimen adequacy: Commen t Satis facto ry for evalu ation . Endoc ervic al and/o r squam ous metap lasti c cells (endo cervi tiesha compo nent) are prese nt. Not Available [facility] ([facility]) [address] [facility], [place], [address], 03/07/2021 03:08:19 03/05/20 21 03/06/2021 IGP, APTIM A HPV clinician provided ICD10: Paty castillo Z01.4 19 Z11.5 1 Not Available [facility] ([facility]) [address] [place], [address], 03/07/2021 03:08:19 03/05/20 21 03/06/2021 IGP, APTIM A HPV performed by: Sai Cool (ASCP ) Not Available [facility] ([facility]) [address] [place], [address], 03/07/2021 03:08:19 03/05/2003/06/2021 IGP, APTIM A HPV . . Not Available [facility] ([facility]) [address] [facility], [place], [address], 03/07/2021 03:08:19 03/05/20 21 03/06/2021 IGP, APTIM A HPV note: Paty castillo The Pap smear is a scree shahana test desig riki to aid in the detec tion of trisha ligna nt and malig nant condi tions of the uteri ne cervi x. It is not a diagn ostic proce dure and shoul d not be used as the sole means of detec ting cervi tiesha cance r. Both false -posi tive and false -nega tive repor ts do occur . Not Available [facility] ([facility]) [address] [facility], [place], [address], 03/07/2021 03:08:19 03/05/2003/06/2021 IGP, APTIM A HPV test methodology: Paty castillo This liqui d based ThinP rep(R ) pap test was scree riki with the use of an image guide aguilar briseno Not Available [facility] ([facility]) [address] [place], [address], 03/07/2021 03:08:19 03/05/20 21 03/07/2021 IGP, APTIM A HPV HPV aptima Negati ve negati ve This nucle ic acid ampli ficat ion test detec ts fourt een high- risk HPV types (16,1 8,31, 33,35 ,39,4 5,51, 52,56 ,58,5 9,66, 68) witho ut diffe renti ation . Not Available [facility] ([facility]) [address] [facility], [place], [address], 03/07/2021 03:08:19 03/05/20 21 03/07/2021 NUSWA B VG+, HSV trich vag by MARY Negati ve negati ve Not Available [facility] ([facility]) [address] [place], [address], 03/08/2021 09:13:01 03/05/2003/07/2021 NUSWA B VG+, HSV chlamydia trachomatis, MARY Negati ve negati ve Not Available [facility] ([facility]) [address] [facility], [place], [address], 03/08/2021 09:13:01 03/05/20 21 03/07/2021 NUSWA B VG+, HSV neisseria gonorrhoeae, MARY Negati ve negati ve Not Available [facility] ([facility]) [address] [place], [address], 03/08/2021 09:13:01 03/05/2003/08/2021 NUSWA B VG+, HSV atopobium vaginae High - 2 score abnormal Not Available [facility] ([facility]) [address] [place], [address], 03/08/2021 09:13:01 03/05/20 21 03/08/2021 NUSWA B VG+, HSV bvab 2 Low - 0 score Not Available [facility] ([facility]) [address] [place], [address], 03/08/2021 09:13:01 03/05/20 21 03/08/2021 NUSWA B VG+, HSV megasphaera 1 High - 2 score abnormal Calcu late total score by aldo cruz the 3 indiv idual bacte rial vagin osis (BV) marke r score s toget her. Total score is inter prete d as follo ws: Total score 0-1: Indic ates the absen ce of BV. Total score 2: Indet ermin ate for BV. Addit ional clini tiesha data shoul d be evalu ated to estab melissa a diagn osis. Total score 3-6: Indic ates the prese nce of BV. This test was devel oped and its perfo rmanc e pau cteri stics deter mined by [facility]. It has not been clear ed or appro joslyn by the Food and Drug Admin istra tion. Not Available [facility] ([facility]) [address] [place], [address], 03/08/2021 09:13:01 03/05/20 21 03/08/2021 NUSWA B VG+, HSV magdalena albicans, MARY Negati ve negati ve Not Available [facility] ([facility]) [address] [place], [address], 03/08/2021 09:13:01 03/05/20 21 03/08/2021 NUSWA B VG+, HSV magdalena glabrata, MARY Negati ve negati ve Not Available [facility] ([facility]) [address] [place], [address], 03/08/2021 09:13:01 03/05/20 21 03/08/2021 NUSWA B VG+, HSV hsv 1 MARY Negati ve negati ve Not Available [facility] ([facility]) [address] [place], [address], 03/08/2021 09:13:01 03/05/20 21 03/08/2021 NUSWA B VG+, HSV hsv 2 MARY Negati ve negati ve Not Available [facility] ([facility]) [address], [place], [address], 03/08/2021 09:13:01 03/05/20 21 03/07/2021 STREP GP B MARY strep gp B MARY Positi ve negati ve abnormal Cente rs for Disea se Contr ol and Preve ntion ([facility]) and Ameri can Congr ess of Obste trici ans and Gynec ologi sts (ACOG ) guide lines for preve ntion of perin atal group B strep tococ tiesha (GBS) disea se speci fy co-co llect ion of a vagin al and recta l swab speci men to maxim ize sensi tivit y of GBS detec tion. Per the [facility] and ACOG, swabb ing both the lower vagin a and rectu m subst antia lly incre ases the yield of detec tion chela red with sampl ing the vagin a alone . Penic illin G, ampic illin , or cefaz mica are indic ated for intra partu m proph ylaxi s of perin atal GBS colon izati on. Refle x susce ptibi lity testi ng shoul d be perfo rmed prior to use of clind amyci n only on GBS isola andrew from penic illin -vipin rgic women who are consi dered a high risk for anaph ylaxi s. Treat ment with vanco mycin witho ut addit ional testi ng is warra nted if resis tance to clind amyci n is noted . Not Available [facility] ([facility]) [address], [place], [address], 03/08/2021 09:13:02 03/09/2003/09/2021 MAMMO , scree shahana, bilat eral No observ ation record ed. [facility] [address] [place], [address], 03/10/2021 14:06:11 08/28/20 08/28/2021 US, pelvi s, compl ete No observ ation record ed. [facility] [address] [facility] [place], [address], 09/28/2021 15:21:19 Result Notes None recorded. 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 Not Available [facility] 13:24:42 Menorrha serafin 707165710 Active 2019 Not Available [facility] 13:24:42 Female steriliz ation Active 2020 Not Available [facility] 13:24:42 Bacteria l vaginosi s 250942970 Active 2020 Not Available [facility] 13:24:42 Group B Streptoc occus carrier 99293273551 03 Active 2020 Not Available [facility] 13:24:42 Weight increase d 342079978 Completed 03/05/2021 Marco Eufemiagretta [place], [place] - [facility] 17:14:38 Loss of hair 988207029 Completed 03/05/2021 Marco Eufemiagretta [place], [place] - [place] 17:14:42 Constipa tion 08972066 Active Not Available [facility] 13:24:42 Disorder of lipid metaboli sm 945038088 Active Not Available [facility] 13:24:42 Herpes simplex 03464976 Active for recurren t oral Not Available [facility] 13:24:42 Follicul itis 54745936 Active Not Available [facility] 13:24:42 Altered bowel function 64233719 Active Not Available [facility] 13:24:42 Problem Notes None recorded. Procedures Surgical History Date Name Laterality Status Provider Name and Address Organization Details Recorded Time Date of Last Pap Smear completed Carlotta Diamond [place] 03/05/2021 16:34:56 5 Anesth tubal ligation completed Marii Hebert [facility] 05/26/2015 15:05:11 2 Colposcopy completed Lady Cool MA [facility] 03/09/2015 10:25:10 5 Caesarean Section completed Hali Modi MA [facility] 02/21/2020 15:49:36 Imaging Results None recorded. Procedure Notes None recorded. Medical Equipment None Reported. Allergies Allergen ID Allergen Name Allergen Category Reaction Reaction Severity Criticality Documentation Date Start Date Code Code System Note Provider Name and Address Organization Details Recorded Time 52469 Bactrim medicatio n other severe Not available 02/03/2015 78905 9 RxNorm cause s blurr y visio n and leg pain TAYLOR [place], [facility] 5 11:27:36 Medications Name Sig Start Date Stop Date Status Note LastModified by Organization Details LastModified Time Prescriptio n - Prior Authorizati on Request 04/04 completed Not Available Not Available Not Available multivitami n tablet Take 1 tablet every day by oral route. 2020 active Not Available Not Available Not Avai lable Mirena 21 mcg/24 hr (up to 8 years) 52 mg intrauterin e device Take by intrauter ine route. 11/01 completed Not Available Not Available Not Available atorvastati n 20 mg tablet TAKE ONE TABLET BY MOUTH ONCE DAILY active Not Available Not Available No t Available polyethylen e glycol 3350 17 gram oral powder packet Take 1 packet every day by oral route as directed for 30 days. 04/04 completed Not Available Not Available Not Available Tab-A-Moiz tablet 07/31 completed Not Available Not Available Not Available azithromyci n 250 mg tablet TAKE 2 TABLETS (500 MG) BY ORAL ROUTE ONCE DAILY FOR 1 DAY THEN 1 TABLET (250 MG) BY ORAL ROUTE ONCE DAILY FOR 4 DAYS 11/13 completed Not Available Not Available Not Available ibuprofen 800 mg tablet 11/01 completed Not Available Not Available Not Available tizanidine 4 mg tablet active Not Available Not Available Not Available metronidazo le 0.75 % (37.5 mg/5 gram) vaginal gel INSERT 1 APPLICATO RFUL EVERY DAY BY VAGINAL ROUTE AT BEDTIME FOR 5 DAYS. 07/31 completed Not Available Not Available Not Available Tubersol 5 tub. unit/0.1 mL intradermal injection solution Unit dose intraderm al route. 10/02 completed Not Available Not Available Not Available penicillin V potassium 500 mg tablet TAKE 1 TABLET EVERY 8 HOURS BY MOUTH FOR 7 DAYS. 07/31 completed Not Available Not Available Not Available metronidazo le 500 mg tablet Take 1 tablet twice a day by oral route for 7 days. 10/02 completed Not Available Not Available Not Available ciprofloxac in 500 mg tablet Take 1 tablet every 12 hours by oral route. 11/01 completed Not Available Not Available Not Available tramadol 50 mg tablet active Not Available Not Available No t Available acyclovir 800 mg tablet TAKE 1 TABLET BY MOUTH EVERY DAY active Not Available Not Available No t Available levothyroxi ne 100 mcg tablet TAKE 1 TABLET BY MOUTH EVERY DAY active Not Available Not Available No t Available oxycodone-a cetaminophe n 5 mg-325 mg tablet 11/01 completed Not Available Not Available Not Available terbinafine HCl 250 mg tablet TAKE 1 TABLET BY MOUTH EVERY DAY active Not Available Not Available No t Available Denavir 1 % topical cream APPLY TO THE AFFECTED AREA(S) BY TOPICAL ROUTE EVERY 2 HOURS DURING WAKING HOURS FOR 4 DAYS 03/05 completed Not Available Not Available Not Available benzonatate 100 mg capsule 11/01 completed Not Available Not Available Not Available naproxen sodium 550 mg tablet 11/01 completed Not Available Not Available Not Available bisacodyl 5 mg tablet,torres yed release 11/01 completed Not Available Not Available Not Available norethindro ne acetate 5 mg tablet Take 1 tablet(s) every day by oral route. 03/30 completed Not Available Not Available Not Available polyethylen e glycol 3350 17 gram/dose oral powder MIX 1 CAPFUL (17G) WITH LIQUID AND DRINK ONCE DAILY. 04/04 completed Not Available Not Available Not Available Sudogest 60 mg tablet Take 1 tablet every 6 hours by oral route as directed for 5 days. 11/13 completed Not Available Not Available Not Available lactulose 10 gram/15 mL oral solution 11/01 completed Not Available Not Available Not Available Miralax 11/13 completed Not Available Not Available Not Available calcium 600 mg (as carbonate)- vitamin D3 10 mcg (400 unit) tablet TAKE 1 TABLET BY MOUTH TWICE A DAY active Not Available Not Available No t Available Metamucil (with sugar) 3.4 gram/7 gram oral powder Take 3.4 g every day by oral route as needed for 30 days. 10/02 completed Not Available Not Available Not Available lactulose 10 gram/15 mL (15 mL) oral solution Take 15 mL every day by oral route. 11/01 completed Not Available Not Available Not Available Linzess 145 mcg capsule Take 1 capsule every day by oral route. 11/01 completed Not Available Not Available Not Available Slynd 4 mg (28) tablet TAKE 1 TABLET BY MOUTH EVERY DAY active Not Available Not Available No t Available Daily-Moiz (with folic acid) 400 mcg tablet TAKE 1 TABLET BY MOUTH EVERY DAY active Not Available Not Available No t Available Vitals Date Recorded Body height Body mass index (BMI) Body weight Body temperature Oxygen saturation Oxygen saturation in Arterial blood by Pulse oximetry Heart rate Systolic blood pressure Diastolic blood pressure Provider Name and Address Organization Details Last Updated DateTime 9 170.18 cm 28.9 kg/m2 46182.4 3 g 98.2 [degF] 100 % 100 % 86 /min 126 mm[Hg] 74 mm[Hg] Cecelia Churchill [place] - [facility] 9 09:36:51 Date Recorded Body height Body mass index (BMI) Body weight Provider Name and Address Organization Details Last Updated DateTime 02/21/2020 168.91 cm 27 kg/m2 18504.7 g Hali Modi [place] - [facility] 02/21/2020 15:45:41 Date Recorded Body height Body mass index (BMI) Body weight Systolic blood pressure Diastolic blood pressure Provider Name and Address Organization Details Last Updated DateTime 03/05/2021 168.91 cm 25.1 kg/m2 14060.59 g 100 mm[Hg] 76 mm[Hg] Carlotta Diamond [place] [facility] 1 16:33:26 Date Recorded Body height Body mass index (BMI) Body weight Systolic blood pressure Diastolic blood pressure Provider Name and Address Organization Details Last Updated DateTime 03/30/2020 168.91 cm 26.2 kg/m2 89961.74 g 104 mm[Hg] 80 mm[Hg] Zhane George [place] [facility] 0 15:59:14 Date Recorded Body height Body mass index (BMI) Body weight Systolic blood pressure Diastolic blood pressure Provider Name and Address Organization Details Last Updated DateTime 07/31/2021 168.91 cm 25.8 kg/m2 49155.96 g 108 mm[Hg] 72 mm[Hg] Hali Modi [place] [facility] 1 11:07:35 Social History Question Answer Notes LastModified by Organizat ion Details LastModified Time Tobacco Smoking Status Former Smoker Evelin Matthews [place] null, [place] - [facility] 02/03/2015 11:27:36 Do You Have An Advance Directive? No Information not available 03/09/2015 Is Blood Transfusion Acceptable In An Emergency? Yes Information not available 03/09/2015 What Is Your Level Of Caffeine Consumption? Occasional [email or web address] Information not available 11/13/2018 How Much Tobacco Do You Chew? None Information not available 03/09/2015 What Type Of Diet Are You Following? REGULAR Information not available 03/09/2015 Which Illicit Or Recreational Drugs Have You Used? None Information not available 03/09/2015 Education 2 Year College Informatio n not available 03/09/2015 Live Alone Or With Others? With Others Information not available 03/09/2015 What Was The Date Of Your Most Recent Tobacco Screening? 07/31/2021 Information not available 07/31/2021 How Many Children Do You Have? 2 Information not available 03/09/2015 Performs Monthly Self-breast Exam? No Information no t available 03/09/2015 Do You Use Protection During Sex? No Information not available 03/09/2015 What Is Your Relationship Status? Single Information not available 03/09/2015 Seat Belts Used Routinely Yes Information not available 03/09/2015 Are You Sexually Active? Yes Information not available 03/09/2015 At What Age Did You Start Smoking Tobacco? 13 Information not available 03/09/2015 How Much Tobacco Do You Smoke? 1 PPW Information not available 02/03/2015 General Stress Level Low [id number] Information not available 05/26/2015 Do You Use Sunscreen Routinely? Yes Information not available 03/09/2015 Has Tobacco Cessation Counseling Been Provided? Yes [email or web address] Information not available 11/13/2018 On What Date Was Tobacco Cessation Counseling Provided? 07/31/2021 Information not available 07/31/2021 How Many Years Have You Smoked Tobacco? 10 Information not available 02/03/2015 Sex: Unknown Functional Status Question Answer Note LastModified by Organizat ion Details LastModified Time Do you or have you ever used any other forms of tobacco or nicotine? Yes vaping Information not available 07/31/2021 What is your level of alcohol consumption? Occasional [id number] Information not available 05/26/2015 Do you or have you ever used smokeless tobacco? Never used smokeless tobacco [email or web address] Information not available 02/21/2020 Are you currently employed? 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 Current user of electronic cigarettes Information not available 02/21/2020 What is your exercise level? Occasional Information not available 03/09/2015 Mental Status None recorded. Family History Relationship Description Onset Age of this Age Resolved Age Notes LastModified by Organization Details LastModified Time Mother Chronic obstructive pulmonary disease Not available 05/09 15:05:11 Mother Harmful pattern of use of alcohol [email or web address] Not available 05/09 15:05:11 Mother Depressive disorder [email or web address] Not available 05/09 15:05:11 Mother Heart disease [email or web address] Not available 05/09 15:05:11 Mother Hypercholest erolemia [email or web address] Not available 05/09 15:05:11 Mother Hypertensive disorder [email or web address] Not available 05/09 15:05:11 Father Malignant tumor of colon 62 [email or web address] Not available 05/09 15:05:11 Father Malignant neoplasm of prostate [email or web address] Not available 05/09 15:05:11 Medical History Condition Response Coronary Artery Disease N Kidney Cyst N Blood Diseases N Hyperthyroidism N Blood disorders N Blood Transfusion N MRSA N Emphysema N Depression N COPD N Blood Clots N Pneumonia N Premature N Peripheral Arterial Disease N Edema N TIA N Headaches/Migraines N Anxiety Disorder N Obesity N Polyps N Infertility N Acid Reflux (GERD) N Hematuria N Stroke N Neck Injury N Polio N Hospital Admission other than N Neurologic Disorder N Other Sleep Disorders N Rheumatoid Arthritis N Fibromyalgia N Abdominal Aortic Aneurysm Repair N Kidney Disease N Heart Conditions N Heart Disease/Heart Problems N Hospitalizations N Brain Tumors N Acne N Skin Problems N Eating Disorder N Meningitis N Constipation N Tuberculosis N Cerebral Palsy N Myocardial Infarction N Asthma N Substance Abuse N Peripheral Vascular Disease N Vertigo N Sleep Disorder N Cirrhosis N Pulmonary Embolism N Chicken Pox N Hematologic Disease N Flomax Use Past or Present N Anxiety/Depression N Thyroid Disease N Colon Cancer N Lung Disease N Glaucoma N Developmental or Behavioral Disorders N Bipolar N Pacemaker N Diverticulitis/Diverticulosis N Orthopedic Problems N Anesthesia Complications N Orthotics N Head Injury/Concussion N Congenital Anomalies N Balderas Bite N Chronic Kidney Disease N Endometriosis N Liver Disease N Schizophrenia N Dialysis N Speech Delay N Chronic Obstructive Pulmonary Disease N Parkinson's Disease N Thyroid Problems N GI Problems N Developmental Delay N Anemia N Multiple Sclerosis N Immune System Disorder N Colon Polyps N Heart Attack ([place]) N Diabetes N Cardiomyopathy N Blood Transfusions N Heart Problems/Murmur N Eye Trauma N Congestive Heart Failure (CHF) N Valvular Heart Disease N Hyperlipidemia Y Double Vision N Abuse/Domestic Violence N Hepatitis B N Lupus N Epilepsy/Seizures N Reflux/GERD N Aneurysm N Heart Disease N Bronchitis N Pre-Eclampsia N Hypertension N Heart Failure N Other N Gout N High Blood Pressure N Atrial Fibrillation N Kidney Stones N Head Trauma/Injury N Congenital Heart Disease N Spine Problems N Gastrointestinal Disease N Lung Mass N Sinusitis N Obstructive Sleep Apnea N Muscle, Joint, or Bone Problems N Autoimmune disease N Vision or Eye Problems N Arthritis N Blood Clot N Cancer N Seasonal allergies N Leg or Foot Ulcers N Raynaud's Disease N Aortic Aneurysm N Arrhythmia N Headaches N Heart Problems N [place]bl[place]pia N Ear or Hearing Problems N Hyperparathyroidism N Migraines N Artificial Joints N Kidney or Bladder Problems N NSAID Use N Encephalitis N PTSD N Ulcers N Prostate Hypertrophy N Bleeding Disorder N AIDS/HIV N Urinary Tract Infection N Back Problems N Allergies N Atrial Flutter N GERD/Reflux N Hepatitis N Autism Spectrum Disorder (ASD) N Breast Cancer N Hernia N Hypothyroidism N Breast Problem N Genitourinary Disease N Deep Vein Thrombosis N Varicose Veins N Cystic Fibrosis N Hearing Loss N Developmental Problems N Carotid Disease N Vitamin D Deficiency N ADHD N Bladder or Kidney Problems N High Cholesterol N [place] N Valvular Abnormalities N Psychiatric/Mental Health Condition N Organ Transplant N Foot Deformity N Allergies/Hayfever N Dyslipidemia N Hyponatremia N Diabetic Eye Disease N Osteoporosis/Osteopenia N Back Pain N Proteinuria N Mental Illness N Neurological Problems N Ovarian Cancer N Bedwetting N Seizures/Epilepsy N Kidney Failure N Ocular trauma N Diverticulitis N Dementia N Sleep Apnea N Mental Problems N Warfarin Management N Osteoporosis N Gynecological History Statement/Question Response Abnormal Pap Y On BCP's at Conception? N STIs/STDs N HPV Vaccine N Age at Menarche 17 Current Control Method Tubal Ligat ion Age at First Child 19 Sexually Active? Y Menses Monthly N Date of Last Pap Smear 03/05/2021 Sexual Problems? N LMP Approximate Desired Control Method BCPs Obstetrics History GPAL:G 4 P 2 0 2 2 Type Value Multiple Births 0 Full Term 2 Induced 1 Spontaneous 1 Premature 0 Living 2 Ectopics 0 Total 4 Immunizations Vaccine Type Date Status Note Provider Nam e and Address Organization Details Recorded Time IPV 05/16/2017 completed Not Available [facility] 09/25/2019 02:34:19 Influenza, split virus, quadrivalent, PF 05/30/2017 completed Not Available [facility] 0 02:49:48 Tdap 02/03/2015 completed Not Available [facility] 09/25/2019 02:30:20 Past Encounters Encounter ID Performer Location Encounter Start Date Encounter Closed Date Diagnosis/Indication Diagnosis SNOMED-CT Code Diagnosis ICD10 Code Diagnosis Note [id number] MD Denisha Hussein (Adult Med) [address] [place] [address] [phone] 0 02/03/2015 10:52:47 02/03/2015 14:39:58 General examination of patient [id number] 34 y/o WF who was last seen in this office by Dr. Bhakta 07/11/2011 Weight increased 913560186 Loss of hair 506178486 Constipation 44157888 Ch ronic issue, admitted 7 years ago with impaction. Start Metamucil, there is a strong family history of Colon cancer in her father who was diagnosed [id number] MD Denisha Irby (CHILD SUPPORT OFFICER) [address] [place] [address] [id number] 0 03/09/2015 09:53:37 03/09/2015 10:54:53 Family planning surveillance 249436760 Uses IUD (intrauterine device) contraception 450619513 Constipation 77214186 Female sterilization 48010565 [id number] MD Denisha Hussein (Adult Med) [address] [place] [address] [id number] 0 03/31/2015 10:35:26 03/31/2015 13:04:22 Constipation 00607718 Chronic issue for which she was admitted 7 years ago with impaction. On Linzess and Lactulose from Dr. Fall Colonoscop y by GI Disorder o f lipid metabolism 659208916 Low CHO and low fat diet [id number] MD Denisha Irby (CHILD SUPPORT OFFICER) [address] [place] [address] [id number] 0 04/11/2015 10:25:20 04/11/2015 11:44:35 Female sterilization 96759201 Herpes simplex 49186111 Gynecologi c examination 82879783 [id number] MD Denisha Irby (CHILD SUPPORT OFFICER) [address] [place] [address] [id number] 0 05/23/2015 11:08:53 05/23/2015 13:47:38 Female sterilization 14685254 [id number] Steph Haskins MD [facility] [address] [place] [address] 05/26/2015 14:47:24 05/26/2015 17:37:51 Family history of cancer of colon 013240246 Altered flor wel function 60259146 [id number] MD Denisha Hussein (Adult Med) [address] [place] [address] [id number] 0 11/01/2016 12:17:25 11/04/2016 09:21:40 Chronic constipation 427927869 K59.00 General ex amination of patient 548908066 Z00.01 Copy of her colonoscop y report Constipation 39281045 K5 9.00 Chronic issue [id number] MD Denisha Hussein (Adult Med) [address] [place] [address] [id number] 0 04/04/2017 11:18:11 04/04/2017 12:12:40 Adult health examination 119146546 Z00.01 Viral screening 27218606 4 Z11.59 History of chickenpox 16 7047828 Z86.19 Tuberculos is screening 594054832 Z11.1 Disorder o f lipid metabolism 544903388 E78.9 Low CHO and low fat diet [id number] MD Denisha Hussein (Adult Med) [address] [place] [address] [id number] 0 05/16/2017 09:58:15 05/16/2017 15:52:43 [id number] MD Denisha Hsusein (Adult Med) [address] [place] [address] [id number] 0 05/30/2017 09:54:36 05/30/2017 12:05:36 Administration of influenza vaccine 41551603 Z23 Administra tion of poliomyelitis vaccine 20341659 Z23 She needs a new series or three IPV shots, or evidence of completion of the series. We are unable to confirm this on the [facility] registry, she will check with her school district.S he received the first dose 05/16/2017, the second dose in a month and the 3rd dose in 6-12 months [id number] MD Denisha Irby (CHILD SUPPORT OFFICER) [address] [place] [address] [id number] 0 12/30/2017 10:21:21 12/30/2017 12:39:43 Gynecologic examination 02077090 Z01.419 Z11.51 Herpes simplex 47498519 B00.9 Menorrhagia 547310295 N9 2.0 Exposure t o sexually transmissible disorder 505067512 Z20.2 [id number] MD Denisha Hussein (Adult Med) [address] [place] [address] [id number] 0 10/02/2018 14:47:52 10/05/2018 08:27:16 General examination of patient 334433500 Z00.01 Copy of her colonoscop y report Thyroid fu nction tests abnormal 931784277 R94.6 Constipation 95211714 K5 9.00 Chronic issue Upper resp iratory infection 65860717 J06.9 [place] Chronic constipation 236 074856 K59.00 Weight gain 0274750 R63. 5 [id number] MD Denisha Hussein (Adult Med) [address] [place] [address] [id number] 0 11/13/2018 09:28:17 11/16/2018 09:06:12 Thyroid function tests abnormal 145729928 R94.6 Sore throat 464027250 J0 2.9 Erythrocytosis 143495170 D75.1 Disorder o f lipid metabolism 000753270 E78.9 Low CHO and low fat diet Pain in throat 079616387 R07.0 Subclinica l hypothyroidism 96184042 E03.9 [id number] MD Denisha Irby (CHILD SUPPORT OFFICER) [address] [place] [address] [id number] 0 02/21/2020 09:49:57 02/22/2020 10:14:42 Gynecologic examination 21283131 Z01.419 Z11.51 Herpes simplex 25392297 B00.9 Menorrhagia 338101501 N9 2.0 Hypothyroidism 06255107 E03.9 Mixed hyperlipidemia 267 723895 E78.2 [id number] MD Denisha Irby (CHILD SUPPORT OFFICER) [address] [place] [address] [id number] 0 03/30/2020 15:43:39 03/31/2020 10:57:45 Gynecologic examination 01774112 Z01.419 Z11.51 Herpes simplex 11995053 B00.9 Family hernan ing surveillance 377607953 Z30.09 history of tubal Hormone abnormality 8445 2004 R89.1 History of female sterilization 089444703 Z92.0 2014 Exposure t o sexually transmissible disorder 072412166 Z20.2 Onychomyco sis of toenails 866314569 B35.1 [id number] MD Denisha Irby (CHILD SUPPORT OFFICER) [address] [place] [address] [id number] 0 03/05/2021 16:18:43 03/05/2021 16:54:18 Gynecologic examination 16048018 Z01.419 Z11.51 Screening mammography 24 637001 Z12.31 Exposure t o sexually transmissible disorder 225965924 Z20.2 Family hernan nning surveillance 125727640 Z30.09 history of tubal Female sterilization 608 27694 Z30.2 [id number] FERNANDO LEDESMA CK, DO [facility] (CHILD SUPPORT OFFICER) [facility] [place] [address] 07/31/2021 10:40:37 08/08/2021 08:13:14 Cyst of left ovary 1307730228 9472387 N83.202 Incidental finding of hemorrhagi c cyst on MRI of HIP. Dimensions not disclosed. Small amount of free fluid also appreciate d and was associated with 3 days of mild lower abdominal pain per patient. Patient asymptomat ic today. Plans for Pelvic US to further assess. Health Concerns Section Related Observation LastModified by Organization Detai ls LastModified Time None Recorded Concern Status LastModified by Organization Details LastModified Time None Recorded Advance Directives Directive N: Payers Encounter Date Sequence Insurance Name Policy Number Policy Benitez Covered Member ID Benitez Member ID Guarantor Name 11/13/2018 1 [employer] [place] [id number] Asuncion Ashley [id number] Asuncionhernan Vivare 02/21/2020 1 [employer] [place] [id number] Asuncion Ashley [id number] Asuncion Ashley 03/30/2020 1 [employer] [place] [id number] 0003 Asuncion Ashley [id number] Asuncion Ashley 03/05/2021 1 [employer] [place] [id number] 0003 Asuncion Ashley [id number] Asuncion Ashley 07/31/2021 1 [employer] [place] [id number] 0003 Asuncion Ashley [id number] Asuncionhernan Ashley Notes Date Note Type Note Provider Name and Address Organization Details Recorded Time 11/13/2018 text/html I am pooping better Ms Ashley returns, her constipation has improved but she had a sore throat yesterday but it is much better today. Janette Sheikh MD Attn: Accounting[address] [place], [address], [facility] 11/13/2018 10:08:34 02/21/2020 text/html Annual GYNReport ed bypatient.History: menorrhagia Menstrual cycle:Menorrhagia Urinary symptoms:No hematuria; No incontinence Vulva:No genital lesion Vagina:Normal vaginal discharge Breast:No breast pain; No breast lump; No nipple discharge Current Contraception:Tuba l ligation Sexual complaints:No sexual complaints; No pain during intercourse; Normal libido Menopausal Symptoms:No menopausal symptoms; Normal vaginal lubrication Psychological symptoms:No depression; No anxiety; No PMDD 40yo CAF here for annual exam with complaints of menorrhagia med refill Marco Eufemia polanco [facility] 02/21/2020 16:43:09 03/30/2020 text/html Annual GYNReport ed bypatient.History: no gynecologic complaints Menstrual cycle:No period for the last 3 years, but spotted today Urinary symptoms:No hematuria; No incontinence Vulva:No genital lesion Vagina:Normal vaginal discharge Breast:No breast pain; No breast lump; No nipple discharge Current Contraception:Tuba l ligation Sexual complaints:No sexual complaints; No pain during intercourse; Normal libido Menopausal Symptoms:No menopausal symptoms; Normal vaginal lubrication Psychological symptoms:No depression; No anxiety; No PMDD 40yo CAF here for annual exam with complaints of discolored and thickened big toe nails on both feet. Patient states she hasn't had a period for the past 3 years, but noticed some brown blood when she wiped today and would like to not a have period again. Marco polanco [facility] 03/30/2020 17:24:38 03/05/2021 text/html Annual GYNReport ed bypatient.History: no gynecologic complaints Menstrual cycle:No period for the last 3 years, but spotted today Urinary symptoms:No hematuria; No incontinence Vulva:No genital lesion Vagina:Normal vaginal discharge Breast:No breast pain; No breast lump; No nipple discharge Current Contraception:Tuba l ligation Sexual complaints:No sexual complaints; No pain during intercourse; Normal libido Menopausal Symptoms:No menopausal symptoms; Normal vaginal lubrication Psychological symptoms:No depression; No anxiety; No PMDD Preventive measures:Encourage self breast examination; Encourage regular exercise; Encourage no tobacco use; Encourage regular mammograms starting age 40; Followed with Q3 year pap smear and high risk HPV typing; Needs to schedule mammogram 40yo CAF here for annual exam with complaints of discolored and thickened big toe nails on both feet. Patient states she hasn't had a period for the past 3 years, but noticed some brown blood when she wiped today and would like to not a have period again. Marco Fall sherri, [facility] 03/05/2021 17:29:52 07/31/2021 text/html Patient presents for follow up on incidental finding of hemorrhagic cyst on MRI of HIP. Dimensions of cyst were not disclosed. Small amount of free fluid also appreciated on imaging. Patient reports 3 days of mild lower abdominal pain at time of imaging. Fernando Sonali polanco, [facility] 08/12/2021 12:48:18 OBGyn Episode Ob Episode Information Episode Created Date Number of Fetuses Patient Bloodtype Patient rh Status Prepregnancy Weight lbs Domestic Partner Domestic Partner Phone Father Name Android Architect Status 12/31/19 18 1 CLOSED Fetus Data First Name Last Name Admitted to NICU Weight (g) Sex Living Outcome Pediatric Complications Fetus ID Race Codes Race Delivery Type Full Term [id number] Marlon Calculation Initial Marlon Date Initial Exam Date Initial Exam Provider Initial Ultrasound Date Last Menstrual Period Date Ultra Sound Weeks Gestation 0 Eighteen To Twenty Week Marlon Update Ultra Sound Date Fundal Height At Umbil Quickening Date Ultra Sound Latest Weeks Gestation Final Marlon Confirmed By Final Marlon Confirmed Date Final Marlon Date Ultra Sound Latest Days Gestation 0 0 Menstrual History Last Menstrual Date Menses Monthly On Bcp Conception Prior Menses Frequency Hcg Plus Date Menarche Onset Age Delivery Information Delivery Date Delivery Type Labor Anesthesia Weeks Gestation Incision Type Labor Labor Length Hrs Delivered By Post Complications Tubal Sterilization Discharge Date Comments 9 [facility] idural 40 Discharge Information Feeding Method Contraceptive Method Maternal HG B and HCT Levels Ob Episode Information Episode Created Date Number of Fetuses Patient Bloodtype Patient rh Status Prepregnancy Weight lbs Domestic Partner Domestic Partner Phone Father Name Android Architect Status 12/31/19 18 1 CLOSED Fetus Data First Name Last Name Admitted to NICU Weight (g) Sex Living Outcome Pediatric Complications Fetus ID Race Codes Race Delivery Type Full Term [id number] Marlon Calculation Initial Marlon Date Initial Exam Date Initial Exam Provider Initial Ultrasound Date Last Menstrual Period Date Ultra Sound Weeks Gestation 0 Eighteen To Twenty Week Marlon Update Ultra Sound Date Fundal Height At Umbil Quickening Date Ultra Sound Latest Weeks Gestation Final Marlon Confirmed By Final Marlon Confirmed Date Final Marlon Date Ultra Sound Latest Days Gestation 0 0 Menstrual History Last Menstrual Date Menses Monthly On Bcp Conception Prior Menses Frequency Hcg Plus Date Menarche Onset Age Delivery Information Delivery Date Delivery Type Labor Anesthesia Weeks Gestation Incision Type Labor Labor Length Hrs Delivered By Post Complications Tubal Sterilization Discharge Date Comments 5 [facility] Discharge Information Feeding Method Contraceptive Method Maternal HG B and HCT Levels
--- OUTSIDE RECORDS SUMMARY | 2025-02-08 13:36 | XMS_ITS | Patient Health Record ---
Author Organization [facility] Address [address] [place] [address] Care Team Providers Care Account Engineer Name Role Phone José Miguel Chavez Primary Care Provider Allergies Allergen (clinical drug ingredient) Drug/Non Drug Allergy documented on EMR Reaction Allergy Type Onset Date Status sulfamethoxazole / trimethoprim Bactrim Prateek's Anup Syndrome Drug Allergy Active Results Component Value Reference Range Notes Lipid Panel* Reviewed date:06/23/2024 10:28:00 AM Interpretation: Performing Lab:[facility], [address] [facility], Phone - [phone], Director - PhDChrista Notes/Report: Cholesterol, Total 195 100-199 mg/dL Triglycerides 178 0-149 mg/dL HDL Cholesterol 44 >39 mg/dL VLDL Cholesterol Domo 31 5-40 mg/dL LDL Chol Calc ([facility]) 120 0-99 mg/dL HIV Screen *HIV 1, 2 Ab, p24 Ag (432578) Reviewed date:06/23/2024 10:28:00 AM Interpretation: Performing Lab:[facility], [address] [facility], Phone - [phone], Director - PhDRicrabiai Notes/Report: HIV Ab/p24 Ag Screen Non Reactive Non Reactive HIV-1/HIV-2 antibodies and HIV-1 p24 antigen were NOT detected. There is no laboratory evidence of HIV infection. HIV Negative Hepatitis C Virus Antibody w /Rflx to Quantitative Real-time PCR ([id number]) Reviewed date:06/23/2024 10:28:00 AM Interpretation: Performing Lab:[facility], [address] [facility], Phone - [phone], Director - [facility] Notes/Report: HCV Ab Non Reactive Non Reactive Interpretation: Not infected with HCV unless early or acute infection is suspected (which may be delayed in an immunocompromised individual), or other evidence exists to indicate HCV infection. TSH Rfx on Abnormal to Free T4 Reviewed date:06/23/2024 10:28:00 AM Interpretation: Performing Lab:[facility], [address] [facility], Phone - [phone], Director - [facility] Notes/Report: TSH 3.000 0.450-4.500 uIU/mL CMP 14 Comprehensive Metabol ic Panel* Reviewed date:06/23/2024 10:28:00 AM Interpretation: Performing Lab:[facility], [address] [facility], Phone - [phone], Director - [facility] Notes/Report: Glucose 88 70-99 mg/dL BUN 9 [...] 0-40 IU/L ALT (SGPT) 26 0-32 IU/L Reason For Referral Reason FAMHX OF COLON AND O THER CANCERS Diagnosis 1 Family history of ca ncer (Z80.9) Referral Organization [facility] Referring Provider First Name José Miguel Referring Provider Last Name Kathy Referring Provider Speciality Internal M edicine Referred Provider Specialty Gastroentero logy General Notes NAVNEET Gonzalez, Nohemi Burton 06/24/2024 07:18:22 AM >Referral to Gastroenterology [facility]. Letter to pt. Clinical Notes Gastroenterology [facility], [facility] [address], , [address], [facility] [address], , Referral Priority Routine Medications Medication SIG [...] Acyclovir 800 MG TAKE 1 TABLET BY BERYL TH EVERY DAY for 30 Active Atorvastatin [...] Problem Status W/U Status Risk Notes Problem 086146104 Other specified hypothyroidism (E03.8) Active confirmed Problem 00078374 Autoimmune thyroiditis (E06.3) Active confirmed Problem 119424485 Mixed hyperlipidemia (E78.2) 1 Active confirmed Problem Tobacco user (153759437) Nicotine dependence, unspecified, uncomplicated (F17.200) Active confirmed Problem 92961358 Other chronic pa in (G89.29) Active confirmed Problem 293675490 Secondary amenorrhea (N91.1) Active confirmed Problem 19572418 Constipation, unspecified constipation type (K59.00) Active confirmed Problem High cholesterol (E78.00) 10/18/202 1 Active confirmed Vital Signs Heart Rate 77 /min 06/22/2024 Respiratory Rate 16 /min 06/22/2024 Blood pressure diastolic 84 mm Hg 06/22/2024 Oximetry 99 % 06/22/2024 Height 66 in 06/22/2024 Blood pressure systolic 124 mm Hg 06/22/2024 Weight 198.4 lbs 06/22/2024 BMI 32.02 kg/m2 06/22/2024 Encounters Encounter Location Date Provider Diagnosis [address] [place] [address] 06/22/2024 José Miguel Chavez Autoimmune thyroidit is E06.3 ; High cholesterol E78.00 ; Other specified hypothyroidism E03.8 ; Exposure to potential infection Z20.9 ; Nutritional counseling Z71.3 and Family history of cancer Z80.[address] [address] 01/20/2025 José Miguel Kathy Abnormal mammogram o f left breast R92.8 Assessments Encounter Date Diagnosis (ICD Code) Assessment Notes Treatment Notes Treatment Clinical Notes Section Notes 01/20/2025 Abnormal mammogram of left breast (ICD-10 - R92.8) 06/22/2024 Autoimmune thyroiditis (ICD-10 - E06.3) DISCUSSED [...] Z80.9) POSSIBLE VIERA SYNDROME Plan Of Treatment Future Test Test Name Order Date Ultrasound : Breast, left 01/20/2025 Diagnostic Mammogram with possible Ultra sound Panel - left breast 01/20/2025 Insurance Providers Payer Name Payer Address Payer Phone Subscriber Number Group Number Insured Name Patient Relationship to Insured Coverage Start Date Coverage End Date [facility] [address] [address] [place] [address] [id number] Asuncion Ashley Self - patient is the insured 3 [facility] [address] [place] [address] [id number] Asuncion Ashley Self - patient is the insured 1 1 [facility] [address] [address] [place] [address] [id number] Asuncion Ashley Self - patient is the insured 3 3 Medical (General) History Medical History History ICD Code High cholesterol E78.00 Autoimmune thyroiditis E06.3 Surgical History Surgery Date(Month/Year) 2004 Hospitalization History Reason Date(Month/Year)
== END 2025-02-08 13:24 | disposition home or self-care (01) ==
PROVIDERS: PCP Internal Medicine; Visit Provider Nurse Practitioner
DX: R92.2 Inconclusive mammogram (principal)
CPT/HCPCS: 76642; 77061; 77065; G0279